=== PATIENT | male | born 1945 | race Caucasian/White ===

== ENCOUNTER → 2016-06-16 | Outpatient (CLI) | payer OTHER ==
[2015-09-19 09:00] VITALS: BP 130/70
[~2016-06-16] MED LIST: AMLO2.5T PO; ASPI325T4 PO; ATEN50TA PO; CLOP75TA PO; DIGO0.12 PO; LOSA1TAB12 PO; LOVA20TA2 PO; METF-620 PO; MULT1TAB52 PO; NITR0.4T6 SL; OMEG1CAP6 PO
--- NOTE | 2016-06-16 10:59 | RAD ---
Indication: Lung nodule, follow-up. Axial imaging through the chest was performed without contrast. Comparison is made with prior chest from 05/23/2015. No axillary lymphadenopathy is detected. No definite hilar or mediastinal lymphadenopathy is detected. There are coronary arterial calcifications present. No pericardial or pleural fluid is identified. Parenchymal evaluation again demonstrates a calcified granuloma in the left lower lobe posteriorly. The noncalcified nodule just inferior to this in the posterior left lower lobe appears stable measuring 6 to 7 mm. No new nodule is seen. Upper abdomen is unremarkable. Impression: Stable left lower lobe pulmonary nodule compared with exam from 05/23/2015. Continued follow-up per Fleischner Society is recommended. PQRS Compliance Statement: One or more of the following individualized dose reduction techniques were utilized for this examination: 1. Automated exposure control 2. Adjustment of the mA and/or kV according to patient size 3. Use of iterative reconstruction technique
== END | disposition home or self-care (01) ==
LOC: CT 10:23
PROVIDERS: ATTEND Internal Medicine Pulmonary Disease
DX: R91.1 Solitary pulmonary nodule (principal)
CPT/HCPCS: 71250

== ENCOUNTER 2017-03-01 11:03 | Emergency (ER) | payer OTHER ==
[2017-03-01] MEDS: IV NORMAL SALINE 500ML BAG 500 ML IV ×2 (12:15)
[2017-03-01] MEDS: ONDANSETRON PF 4 MG/2 ML VIAL. IV ×2 (12:15)
[2017-03-01] MEDS: HYDROmorphone 2 MG/ML VIAL IV ×2 (12:16)
[2017-03-01 12:31] LABS: BILIRUBIN,URINE NEGATIVE (NEG); CLARITY,URINE CLOUDY; COLOR,URINE YELLOW; GLUCOSE,URINE 100 mg/dL (NEG); NITRITE,URINE NEGATIVE (NEG); PROTEIN,URINE NEGATIVE (NEG-TRACE); UROBILINOGEN,URINE 0.2 mg/dL (0.2 mg/dL)
[2017-03-01 12:43] LABS: RBC,URINE TNTC /HPF (0-2); WBC,URINE 0 /HPF (0-4)
[2017-03-01 12:44] LABS: BACTERIA,URINE 0 /HPF (0-FEW); SQUAMOUS EPITHELIAL CELL,UR FEW /LPF
[2017-03-01 13:26] LABS: AGAP ISTAT 18 mmol/L (6-14); BUN ISTAT 22 mg/dL (8-26); CHLORIDE ISTAT 96 mmol/L (98-110); CREATININE ISTAT 1.4 mg/dL (0.5-1.4); GLUCOSE ISTAT 159 mg/dL (70-99); HEMATOCRIT ISTAT 36 % (37-52); HEMOGLOBIN ISTAT 12.2 g/dL (14-18); ION CA ISTAT 1.17 mmol/L (1.13-1.32); POTASSIUM ISTAT 4.2 mmol/L (3.5-5.0); SODIUM ISTAT 136 mmol/L (135-145); TOT CO2 ISTAT 27 mmol/L (23-32)
== END 2017-03-01 14:13 | disposition home or self-care (01) ==
LOC: ER 11:03
DX: N20.1 Calculus of ureter (principal); I25.10 Atherosclerotic heart disease of native coronary artery without angina pectoris; I11.9 Hypertensive heart disease without heart failure; E11.9 Type 2 diabetes mellitus without complications; E78.00 Pure hypercholesterolemia, unspecified; Z87.442 Personal history of urinary calculi; Z95.5 Presence of coronary angioplasty implant and graft; Z88.8 Allergy status to other drugs, medicaments and biological substances
CPT/HCPCS: 74176; 80047; 81001; 96361; 96374; 96375; 99285-25; J1170; J2405; J7040

== ENCOUNTER → 2017-04-07 | Outpatient (CLI) | payer OTHER | END | disposition home or self-care (01) | LOC: PMGWOUND 09:15 | DX: E11.622 Type 2 diabetes mellitus with other skin ulcer (principal); I87.311 Chronic venous hypertension (idiopathic) with ulcer of right lower extremity; I25.10 Atherosclerotic heart disease of native coronary artery without angina pectoris; E78.5 Hyperlipidemia, unspecified; E66.01 Morbid (severe) obesity due to excess calories; L97.211 Non-pressure chronic ulcer of right calf limited to breakdown of skin; I11.9 Hypertensive heart disease without heart failure; E78.00 Pure hypercholesterolemia, unspecified; Z95.1 Presence of aortocoronary bypass graft; Z68.35 Body mass index [BMI] 35.0-35.9, adult; Z95.5 Presence of coronary angioplasty implant and graft | CPT/HCPCS: 29581 ==

== ENCOUNTER → 2017-04-11 | Outpatient (CLI) | payer OTHER | END | disposition home or self-care (01) | LOC: PMGWOUND 12:43 | DX: E11.622 Type 2 diabetes mellitus with other skin ulcer (principal); L97.211 Non-pressure chronic ulcer of right calf limited to breakdown of skin; I87.311 Chronic venous hypertension (idiopathic) with ulcer of right lower extremity; I25.10 Atherosclerotic heart disease of native coronary artery without angina pectoris; E78.5 Hyperlipidemia, unspecified; E66.01 Morbid (severe) obesity due to excess calories; I11.9 Hypertensive heart disease without heart failure; E78.00 Pure hypercholesterolemia, unspecified; Z95.1 Presence of aortocoronary bypass graft; Z68.35 Body mass index [BMI] 35.0-35.9, adult; Z95.5 Presence of coronary angioplasty implant and graft | CPT/HCPCS: 29581; 97597 ==

== ENCOUNTER → 2017-04-18 | Outpatient (CLI) | payer OTHER | END | disposition home or self-care (01) | LOC: PMGWOUND 12:51 | DX: E11.622 Type 2 diabetes mellitus with other skin ulcer (principal); L97.211 Non-pressure chronic ulcer of right calf limited to breakdown of skin; I87.311 Chronic venous hypertension (idiopathic) with ulcer of right lower extremity; I25.10 Atherosclerotic heart disease of native coronary artery without angina pectoris; E66.01 Morbid (severe) obesity due to excess calories; I11.9 Hypertensive heart disease without heart failure; E78.00 Pure hypercholesterolemia, unspecified; Z95.1 Presence of aortocoronary bypass graft; Z68.35 Body mass index [BMI] 35.0-35.9, adult; Z95.5 Presence of coronary angioplasty implant and graft | CPT/HCPCS: 29581 ==

== ENCOUNTER → 2017-04-25 | Outpatient (CLI) | payer OTHER | END | disposition home or self-care (01) | LOC: PMGWOUND 10:57 | DX: E11.622 Type 2 diabetes mellitus with other skin ulcer (principal); L97.211 Non-pressure chronic ulcer of right calf limited to breakdown of skin; I87.311 Chronic venous hypertension (idiopathic) with ulcer of right lower extremity; I25.10 Atherosclerotic heart disease of native coronary artery without angina pectoris; E66.01 Morbid (severe) obesity due to excess calories; I11.9 Hypertensive heart disease without heart failure; E78.00 Pure hypercholesterolemia, unspecified; Z95.1 Presence of aortocoronary bypass graft; Z68.35 Body mass index [BMI] 35.0-35.9, adult; Z95.5 Presence of coronary angioplasty implant and graft | CPT/HCPCS: 99214 ==

== ENCOUNTER 2018-02-10 17:53 | Emergency (ER) | payer OTHER ==
[~2018-02-10] VITALS: Ht 170.2 cm; Wt 97.5 kg
[~2018-02-10 17:53] MED LIST changes: -AMLO2.5T PO; +AMLO2.5T3 PO; -ASPI325T4 PO; +ASPI325T8 PO; +ESOM20CA PO; +LOSA100T14 PO; -METF-620 PO; +METF10007 PO; +NITR0.4T22 SL; -NITR0.4T6 SL; +ONDA4TAB10 PO; +OXYC1TAB15 PO; +TAMS0.4C97 PO
[2018-02-10] MEDS ORDERED: MORPHINE SULFATE 4 MG/ML VIAL. IV ONE (19:30)
[2018-02-10] MEDS ORDERED: CONTRAST GIVEN. MC PRN (19:45)
[2018-02-10] MEDS ORDERED: IOHEXOL 300 MG/ML 100ML VIAL. IV ONE (19:45)
[2018-02-10 19:58] LABS: BASO % 1 % (0-3); EOS # 0.2 x10^3/uL (0.0-0.7); EOS % 3 % (0-3); HEMATOCRIT 37.9 % (39.0-53.0); HEMOGLOBIN 13.5 g/dL (13.0-17.5); LYMPH # 1.2 x10^3/uL (1.0-4.8); LYMPH % 19 % (24-48); MEAN CORPUSCULAR HEMOGLOBIN 32 pg (25-35); MEAN CORPUSCULAR HGB CONC 36 g/dL (31-37); MEAN CORPUSCULAR VOLUME 89 fL (79-100); MONO # 0.5 x10^3/uL (0.0-1.1); MONO % 7 % (0-9); NEUT # 4.8 x10^3uL (1.8-7.7); NEUT % 71 % (31-73); PLATELET COUNT 167 x10^3/uL (140-400); RED BLOOD COUNT 4.26 x10^6/uL (4.30-5.70); RED CELL DISTRIBUTION WIDTH 14.4 % (11.5-14.5); WHITE BLOOD COUNT 6.7 x10^3/uL (4.0-11.0)
[2018-02-10 20:02] LABS: CALCIUM 9.5 mg/dL (8.5-10.1); CREATININE 1.1 mg/dL (0.7-1.3); GFR 65.4; POTASSIUM 3.6 mmol/L (3.5-5.1)
[2018-02-10 20:05] LABS: PROTHROMBIN TIME PATIENT 13.5 SEC (11.7-14.0)
--- NOTE | 2018-02-10 21:19 | RAD ---
PQRS Compliance Statement: One or more of the following individualized dose reduction techniques were utilized for this examination: 1. Automated exposure control 2. Adjustment of the mA and/or kV according to patient size 3. Use of iterative reconstruction technique CT CHEST ABD PELVIS W/CONTRAST Clinical Indication: FALL ONTO CURB HITTING R SIDE ON BLOOD THINNERS Comparison: CT abdomen and pelvis without contrast July or 2017. Technique: Helical CT imaging of the chest, abdomen and pelvis is performed after 75 cc of Omnipaque 300 IV contrast. Oral contrast not given. Findings: No acute traumatic aortic injury. No mediastinal hematoma. Median sternotomy wires, coronary artery disease, changes of CABG, and calcific aortic valve stenosis. Cardiac size normal, no pericardial effusion. Central airways patent. There is no pneumothorax. No pulmonary contusion. Stable 6 mm nodule in the left lower lobe, image 48. Nodule is stable compared to 2015, therefore considered benign. Calcified granuloma left lower lobe. There is no acute traumatic solid organ injury in the upper abdomen. 1.5 cm left renal hypodensity, not definitely a cyst. Fatty replacement of the pancreas. Stomach unremarkable. No dilated bowel. The appendix is normal. No intraperitoneal free air or free fluid. Urinary bladder is intact. No acute compression fracture in the thoracolumbar spine. No acute displaced rib fractures. IMPRESSION: No acute traumatic injury in the chest abdomen or pelvis. Electronically signed by: Yvan Park MD (02/10/2018 9:15 PM) [facility]
[2018-02-10 21:30] VITALS: BP 143/68
[2018-02-10] MEDS ORDERED: MORPHINE SULFATE 10 MG/ML VIAL. IV ONE (21:30)
[2018-02-10] MEDS ORDERED: CYCL10TA2 PO (21:46)
--- NOTE | 2018-02-10 21:46 | PHYS DOC ---
Past Medical History Past Medical History: CAD, Diabetes-Type II, High Cholesterol, Heart Disease, Hypertension, Kidney Stone Past Surgical History: Coronary Bypass Surgery, Other Additional Past Surgical Histo: cardiac cath with stent Alcohol Use: Rarely Drug Use: None Adult General Chief Complaint Chief Complaint: RIB PAIN HPI HPI Patient is a 73 year old male with history of CAD, hypertension, high cholesterol, who presents today complaining of 8 out of 10 sharp right lateral rib pain that began today after he fell at curb at a home. Patient denies any loss of consciousness. Patient states is on several medications including Plavix and aspirin 325 mg. Patient states his pain is worse on deep breaths as well as palpation to the area. Patient denies hitting his head on the ground. Denies any neck pain. Denies any low back or mid back pain. Review of Systems Review of Systems Constitutional: Denies fever or chills [] Eyes: Denies change in visual acuity, redness, or eye pain [] HENT: Denies nasal congestion or sore throat [] Respiratory: Reports right rib pain. Denies cough or shortness of breath [] Cardiovascular: No additional information not addressed in HPI [] GI: Denies abdominal pain, nausea, vomiting, bloody stools or diarrhea [] : Denies dysuria or hematuria [] Musculoskeletal: Denies back pain or joint pain [] Integument: Denies rash or skin lesions [] Neurologic: Denies headache, focal weakness or sensory changes [] All other systems were reviewed and found to be within normal limits, except as documented in this note. Current Medications Current Medications Current Medications Medications (Trade) Dose Ordered Sig/Louis Start Time Stop Time Status Last Admin Dose Admin Info (CONTRAST GIVEN -- Rx MONITORING) 1 each PRN DAILY PRN 02/10/18 19:45 02/12/18 19:44 Iohexol (Omnipaque 300 Mg/ml) 100 ml 1X ONCE 02/10/18 19:45 02/10/18 19:46 DC 02/10/18 20:25 75 ML Morphine Sulfate (Morphine Sulfate) 5 mg 1X ONCE 02/10/18 21:30 02/10/18 21:31 DC 02/10/18 21:14 5 MG Allergies Allergies Allergies Coded Allergies Type Severity Reaction Last Updated Verified lisinopril Allergy Intermediate 02/10/18 Yes Physical Exam Physical Exam Constitutional: Well developed, well nourished, no acute distress, non-toxic appearance. [] HENT: Normocephalic, atraumatic, bilateral external ears normal, oropharynx moist, no oral exudates, nose normal. [] Eyes: PERRLA, EOMI, conjunctiva normal, no discharge. [] Neck: Normal range of motion, no tenderness, supple, no stridor. [] Cardiovascular:Heart rate regular rhythm, no murmur [] Lungs & Thorax: Right ribs with no obvious bruising, no obvious deformity. Mild tenderness on palpation of the right lateral ribs mid axillary line approximately ribs 7 through 11. Bilateral breath sounds clear to auscultation [] Abdomen: Bowel sounds normal, soft, no tenderness, no masses, no pulsatile masses. [] Skin: Palm of the left hand with superficial bruising/laceration approximately 2 x 2 centimeters. Warm, dry, no erythema, no rash. [] Back: No tenderness, no CVA tenderness. [] Extremities: No tenderness, no cyanosis, no clubbing, ROM intact, no edema. [] Neurologic: Alert and oriented X 3, normal motor function, normal sensory function, no focal deficits noted. [] Psychologic: Affect normal, judgement normal, mood normal. [] Current Patient Data Vital Signs Vital Signs Date Time Temp Pulse Resp B/P (MAP) Pulse Ox O2 Delivery O2 Flow Rate FiO2 02/10/18 21:30 64 18 143/68 (93) 98 Room Air 02/10/18 19:16 98.3 98.3 Lab Values Laboratory Tests Test 02/10/18 19:43 White Blood Count 6.7 x10^3/uL (4.0-11.0) Red Blood Count 4.26 x10^6/uL (4.30-5.70) L Hemoglobin 13.5 g/dL (13.0-17.5) Hematocrit 37.9 % (39.0-53.0) L Mean Corpuscular Volume 89 fL (79-100) Mean Corpuscular Hemoglobin 32 pg (25-35) Mean Corpuscular Hemoglobin Concent 36 g/dL (31-37) Red Cell Distribution Width 14.4 % (11.5-14.5) Platelet Count 167 x10^3/uL (140-400) Neutrophils (%) (Auto) 71 % (31-73) Lymphocytes (%) (Auto) 19 % (24-48) L Monocytes (%) (Auto) 7 % (0-9) Eosinophils (%) (Auto) 3 % (0-3) Basophils (%) (Auto) 1 % (0-3) Neutrophils # (Auto) 4.8 x10^3uL (1.8-7.7) Lymphocytes # (Auto) 1.2 x10^3/uL (1.0-4.8) Monocytes # (Auto) 0.5 x10^3/uL (0.0-1.1) Eosinophils # (Auto) 0.2 x10^3/uL (0.0-0.7) Basophils # (Auto) 0.0 x10^3/uL (0.0-0.2) Prothrombin Time 13.5 SEC (11.7-14.0) Prothrombin Time INR 1.1 (0.8-1.1) PTT 27 SEC (24-38) Sodium Level 137 mmol/L (136-145) Potassium Level 3.6 mmol/L (3.5-5.1) Chloride Level 99 mmol/L (98-107) Carbon Dioxide Level 28 mmol/L (21-32) Anion Gap 10 (6-14) Blood Urea Nitrogen 16 mg/dL (8-26) Creatinine 1.1 mg/dL (0.7-1.3) Estimated GFR (Cockcroft-Gault) 65.4 Glucose Level 139 mg/dL (70-99) H Calcium Level 9.5 mg/dL (8.5-10.1) Laboratory Tests 02/10/18 19:43 Laboratory Tests 02/10/18 19:43 EKG EKG [] Radiology/Procedures Radiology/Procedures [] Course & Med Decision Making Course & Med Decision Making Pertinent Labs and Imaging studies reviewed. (See chart for details) This is a 73-year-old male patient presented to the ED today with right lateral rib pain status post falling. Patient is on several blood thinners including Plavix and aspirin [address] chest abdomen and pelvis was obtained which is negative for any acute findings. Discharged with cyclobenzaprine. Ice recommended to the area. Follow-up with PCP next week. Dragon Disclaimer Dragon Disclaimer This electronic medical record was generated, in whole or in part, using a voice recognition dictation system. Departure Departure Impression: Primary Impression: Contusion of rib on right side Additional Impression: Fall from standing Disposition: 01 HOME, SELF-CARE Condition: STABLE Referrals: WALLY WASHINGTON MD (PCP) Follow up in the course of next week Patient Instructions: Contusion, Fkrp-[id number], Fall Prevention and Home Safety Additional Instructions: You were evaluated in the emergency room for right rib contusion after falling. Your CT of the chest and abdomen were negative for any acute findings. Try to ice and elevate the affected area. Take the prescribed medicine as needed for pain. Follow-up with your doctor next week. Come back to the emergency room at any point symptoms worsen. Scripts Cyclobenzaprine Hcl (CYCLOBENZAPRINE HCL) 10 Mg Tablet 1 TAB PO TID, #30 TAB Prov: ROSA ZAMARRIPA APRN 02/10/18 Problem Qualifiers Primary Impression: Contusion of rib on right side Encounter type: initial encounter Qualified Codes: S20.211A - Contusion of right front wall of thorax, initial encounter Additional Impression: Fall from standing Encounter type: initial encounter Qualified Codes: W19.XXXA - Unspecified fall, initial encounter ROSA ZAMARRIPA APRN Feb 10, 2018 21:46
== END 2018-02-10 21:59 | disposition home or self-care (01) ==
LOC: ER 17:53
DX: S20.211A Contusion of right front wall of thorax, initial encounter (principal); I11.9 Hypertensive heart disease without heart failure; E78.00 Pure hypercholesterolemia, unspecified; E11.9 Type 2 diabetes mellitus without complications; I25.10 Atherosclerotic heart disease of native coronary artery without angina pectoris; Z95.1 Presence of aortocoronary bypass graft; Z95.5 Presence of coronary angioplasty implant and graft; Z88.8 Allergy status to other drugs, medicaments and biological substances
CPT/HCPCS: 36415; 71260; 74177; 80048; 85025; 85610; 85730; 96374; 96376; 99284; J2270; Q9967

== ENCOUNTER → 2018-03-07 | Outpatient (CLI) | payer OTHER ==
[2018-02-10 21:30] VITALS: BP 143/68
[~2018-03-07] MED LIST changes: -AMLO2.5T3 PO; +AMLO2.5T5 PO; +CYCL10TA2 PO
--- NOTE | 2018-03-07 15:54 | CARD ---
MR#: [id number] Date of Study: 03/07/2018 Ordering Physician: WILLIAM ROSARIO, Referring Physician: WILLIAM ROSARIO, Tech: Fátima Brownlee APPROVED REPORT EXAM: Two-dimensional and M-mode echocardiogram with Doppler and color Doppler. Other Information Quality : AverageHR: 52bpm INDICATION CAD RISK FACTORS Hypertension Hyperlipidemia Diabetes 2D DIMENSIONS Left Atrium(2D)3.7 (1.6-4.0cm)IVSd1.4 (0.7-1.1cm) Aortic Root(2D)2.7 (2.0-3.7cm)LVDd4.4 (3.9-5.9cm) LVOT Diameter2.0 (1.8-2.4cm)PWd1.2 (0.7-1.1cm) LVDs1.8 (2.5-4.0cm)FS (%) 59.7 % SV76.9 mlLVEF(%)89.4 (>50%) Aortic Valve AoV Peak Jorge A.357.5cm/sAoV VTI87.4cm AO Peak GR.51.1mmHgLVOT Peak Jorge A.104.8cm/s LVOT VTI 28.25cmAO Mean GR.27mmHg IGGY (VTI)1.07cm2 Mitral Valve MV E Zerqbuwn171.8cm/sMV DECEL SOHY481aa MV A Rdwqrnvt50.6cm/sMV MWB34lw E/A Ratio1.4MVA (PHT)3.43cm2 TDI E/Lateral E'13.9E/Medial E'13.3 Pulmonary Valve PV Peak Qkdwrfzp348.6cm/sPV Peak Grad.5mmHg Tricuspid Valve TR P. Klkhosva405ft/sRAP TOAOOKNY8biGm TR Peak Gr.42ehOhHJZI34voNu Pulmonary Vein S1 Izcoydsi43.5cm/sD2 Itgkwibn67.1cm/s PVa cezpacdd512uepx LEFT VENTRICLE The left ventricle is normal size. There is mild to moderate concentric left ventricular hypertrophy. The left ventricular systolic function is normal. The Ejection Fraction is 50-55%. There is normal L V segmental wall motion. The left ventricular diastolic function and filling is normal for age. RIGHT VENTRICLE The right ventricle is normal size. There is normal right ventricular wall thickness. The right ventr icular systolic function is normal. ATRIA The left atrium size is normal. The right atrium size is normal. The interatrial septum is intact wit h no evidence for an atrial septal defect or patent foramen ovale as noted on 2-D or Doppler imaging. AORTIC VALVE The aortic valve is mildly to moderately thickened. Doppler and Color Flow revealed trace to mild aor tic regurgitation. Calculated aortic valve area is 1.07 cm2 with maximum pressure gradient of 51 mmHg and mean pressure gradient of 27 mmHg. Doppler and color-flow analysis revealed moderate aortic sten osis with mean gradient of 27 mmHg. MITRAL VALVE The mitral valve is normal in structure and function. There is no evidence of mitral valve prolapse. There is no mitral valve stenosis. Doppler and Color-flow revealed trace mitral regurgitation. TRICUSPID VALVE The tricuspid valve is not well visualized. Doppler and Color Flow revealed trace tricuspid regurgita tion. There is no tricuspid valve stenosis. PULMONIC VALVE The pulmonic valve is not well visualized. Doppler and Color Flow revealed no pulmonic valvular regur gitation. GREAT VESSELS The aortic root is normal in size. The IVC is normal in size and collapses >50% with inspiration. PERICARDIAL EFFUSION There is no evidence of significant pericardial effusion. Critical Notification Critical Value: No <Conclusion> The left ventricular systolic function is normal. The Ejection Fraction is 50-55%. Moderate aortic stenosis with mean gradient of 27 mmHg. Trace mitral regurgitation. Trace tricuspid regurgitation. There is no evidence of significant pericardial effusion. Signed by : Phillip Tong, Electronically Approved : 03/07/2018 15:52:43
== END | disposition home or self-care (01) ==
LOC: ECHO 13:57
PROVIDERS: ATTEND Internal Medicine Cardiovascular Disease
DX: I35.2 Nonrheumatic aortic (valve) stenosis with insufficiency (principal); I25.10 Atherosclerotic heart disease of native coronary artery without angina pectoris; E78.5 Hyperlipidemia, unspecified; I11.9 Hypertensive heart disease without heart failure; E11.9 Type 2 diabetes mellitus without complications
CPT/HCPCS: 93306

== ENCOUNTER 2018-11-16 08:03 | Observation (INO) | payer OTHER ==
[~2018-11-16] VITALS: Ht 170.2 cm; Wt 100.7 kg
[2018-11-16] VITALS (14 sets, daily range): BP systolic 99–145; BP diastolic 55–75
[2018-11-16] MEDS ORDERED: METO25TA4 PO (08:22)
[2018-11-16] MEDS ORDERED: CLOP75TA PO (08:22)
[2018-11-16] MEDS ORDERED: ISOS60TA2 PO (08:22)
[2018-11-16] MEDS ORDERED: RANO500T2 PO (08:22)
[2018-11-16 08:26] LABS: HEMATOCRIT 37.9 % (39.0-53.0); HEMOGLOBIN 13.4 g/dL (13.0-17.5); RED BLOOD COUNT 4.14 x10^6/uL (4.30-5.70); RED CELL DISTRIBUTION WIDTH 13.2 % (11.5-14.5)
[2018-11-16 08:36] LABS: PROTHROMBIN TIME PATIENT 13.2 SEC (11.7-14.0)
[2018-11-16 08:45] LABS: CALCIUM 9.4 mg/dL (8.5-10.1)
[2018-11-16] MEDS ORDERED: IOHEXOL 300 MG/ML 100ML VIAL. ONE ×2 (09:54→09:56)
[2018-11-16] MEDS ORDERED: LIDOCAINE 1% Multi-Dose 20 ML VIAL. ONE (09:54)
[2018-11-16] MEDS ORDERED: fentaNYL PF VIAL 100 MCG/2 ML VIAL ONE (10:13)
[2018-11-16] MEDS ORDERED: MIDAZOLAM HCL/PF 2 MG/2 ML VIAL. ONE (10:13)
[2018-11-16] MEDS ORDERED: HEPARIN for IV BOLUS 10,000 UNIT/10 ML VIAL. ONE (10:48)
[2018-11-16] MEDS ORDERED: IODIXANOL 320 MG/ML 100 ML VIAL. ONE (10:54)
[2018-11-16] MEDS ORDERED: LIDOCAINE 1% Multi-Dose 20 ML VIAL. INJ ONE (11:15)
[2018-11-16] MEDS ORDERED: IOHEXOL 300 MG/ML 100ML VIAL. IART ONE (11:15)
[2018-11-16] MEDS ORDERED: NITROGLYCERIN 200 MCG/2 ML SYRINGE FOR CATH/VASC LAB. ICAR ONE (11:15)
[2018-11-16] MEDS ORDERED: MIDAZOLAM HCL/PF 2 MG/2 ML VIAL. IV ONE (11:15)
[2018-11-16] MEDS ORDERED: HEPARIN for IV BOLUS 10,000 UNIT/10 ML VIAL. IV ONE (11:15)
[2018-11-16] MEDS ORDERED: fentaNYL PF VIAL 100 MCG/2 ML VIAL IV ONE (11:15)
[2018-11-16] MEDS ORDERED: CONTRAST GIVEN. MC PRN (11:30)
--- NOTE | 2018-11-16 12:00 | NUR ---
Patient arrived from geochemical laboratory technician at 1140, patient alert and oriented, right groin is soft, dressing is clean, dry and intact. Vital signs stable, family at bedside, patient instructed to lay flat. Will continue to monitor.
[2018-11-16] MEDS ORDERED: fentaNYL PF VIAL 100 MCG/2 ML VIAL IV PRN (12:15)
[2018-11-16] MEDS ORDERED: ATROPINE 0.5 MG/5 ML DISP.SYRINGE. IV PRN (12:15)
[2018-11-16] MEDS ORDERED: 0.9 % SODIUM CHLORIDE 10 ML DISP.SYRIN. IV PRN (12:15)
[2018-11-16] MEDS ORDERED: NITROGLYCERIN SUBLINGUAL 0.4 MG BOTTLE OF 25. SL PRN (12:15)
[2018-11-16] MEDS ORDERED: LIDOCAINE 2% 100 MG/5 ML SYRINGE. IV PRN (12:15)
[2018-11-16] MEDS ORDERED: AMIODARONE 150 MG in IV DEXTROSE 5% 100ML 100 ML IV PRN (12:15)
[2018-11-16] MEDS ORDERED: ASPI81TA59 PO (12:28)
[2018-11-16] MEDS ORDERED: LOSA1TAB22 PO (12:28)
[2018-11-16] MEDS ORDERED: DEXTROSE 50% 25 GM / 50ML DISP.SYRIN. IV PRN (14:15)
[2018-11-16] MEDS: ACETAMINOPHEN 325 MG TABLET. PO PRN (15:00)
[2018-11-16] MEDS: INSULIN LISPRO 300 UNITS/3 ML VIAL. SQ SCH (17:00)
[2018-11-16] MEDS: RANOLAZINE 500 MG TAB.ER.12H PO SCH (20:14)
[2018-11-16] MEDS: METOPROLOL TART IMMED RELEASE 25 MG TABLET. PO SCH (20:15)
[2018-11-16] MEDS ORDERED: ATORVASTATIN CALCIUM 10 MG TABLET. PO SCH (21:00)
[2018-11-17 03:22] VITALS: BP 159/76
[2018-11-17 05:49] LABS: CHOLESTEROL/HDL RATIO 3.6
[2018-11-17 07:00] VITALS: BP 151/76
[2018-11-17] MEDS ORDERED: PANTOPRAZOLE 40 MG TABLET.DR. PO SCH (07:30)
[2018-11-17] MEDS ORDERED: CLOPIDOGREL BISULFATE 75 MG TABLET PO SCH (08:00)
[2018-11-17] MEDS ORDERED: ASPIRIN ENTERIC COATED 81 MG TABLET.DR. PO SCH (08:00)
[2018-11-17] MEDS: INSULIN LISPRO 300 UNITS/3 ML VIAL. SQ SCH ×2 (08:00→12:00)
[2018-11-17] MEDS: RANOLAZINE 500 MG TAB.ER.12H PO SCH (08:42)
[2018-11-17] MEDS: METOPROLOL TART IMMED RELEASE 25 MG TABLET. PO SCH (08:43)
[2018-11-17] MEDS ORDERED: MULTIVITAMIN with MINERAL TABLET. PO SCH (09:00)
[2018-11-17] MEDS ORDERED: amLODIPine BESYLATE 5 MG TABLET PO SCH (09:00)
[2018-11-17] MEDS ORDERED: hydroCHLOROthiazide 25 MG TABLET PO SCH (09:00)
[2018-11-17] MEDS ORDERED: LOSARTAN POTASSIUM 50 MG TABLET. PO SCH (09:00)
[2018-11-17] MEDS ORDERED: ISOSORBIDE MONONITRATE ER 30 MG TAB.ER.24H PO SCH (09:00)
[2018-11-17 11:00] VITALS: BP 126/63
[2018-11-17] MEDS: ACETAMINOPHEN 325 MG TABLET. PO PRN (13:42)
--- NOTE | 2018-11-17 14:31 | PDOC ---
Provider Note Provider Note SHORT STAY DISCHARGE SUMMARY: Reason for admission: Overnight observation s/p PCI Discharge diagnosis: 1. CAD s/p 3V CABG 2. HTN 3. DLP 4. DM2 Hospital Course: Patient was admitted to the prosthetics lab technician for outpt cath. He was found to have in stent restenosis of the LCx stent, underwent angioplasty with a Trek 3.0 mm ball oon successful. Overnight with mild asymptomatic bradycardia. Right groin soft/c/d/i. No other acute issues. No new med changes. Discharge meds: See MRAD He will f/u with us in the office in 3 months. WILLIAM ROSARIO MD Nov 17, 2018 14:31
--- NOTE | 2018-11-17 15:24 | NUR ---
SS following for discharge planning. SS reviewed pt chart. Pt is from home with spouse and is currently on room air. Discharge order on the chart for home with self care.
--- NOTE | 2018-11-17 16:05 | NUR ---
Discharge instructions reviewed with patient and , follow ups given no new prescriptions or change in medications.
--- NOTE | 2018-11-20 11:24 | CARD ---
MR#: [id number] Date of Study: 11/16/2018 Ordering Physician: WILLIAM CUEVA, Referring Physician: WILLIAM CUEVA, Tech: MEKHI CHEATHAM RTR APPROVED REPORT Technologist: MEKHI CHEATHAM RTR Nurse: JUAN CAMILO RN Procedure(s) performed: Fluoro time: 18.6MIN Dose:[id number] Contrast:211 Moderate sedation:70 MIN LHC, Coronary angiography, Bypass angiography HISTORY The patient is a 73 year-old male with a history of : coronary artery disease, hypertension, dyslipid emia. INDICATION The indication(s) include : unstable angina . CS Clinical Frailty Scale [facility] Clinical Frailty Scale: Moderately Frail Heart Failure Heart Failure: Yes If Yes, Newly Diagnosed: No If Yes, HF Type: Diastolic If Yes, NYHA Class: Class II PROCEDURE NARRATIVE After explaining the risks and benefits of the procedure and alternatives, informed consent was obtai pooja. The patient was brought electively to the cardiac catheterization lab in a fasting state. A hira eout was performed confirming the patient's name, date of , procedure, and site of procedure. A ll necessary personnel were wearing the appropriate protective equipment and radiation monitor device s. (See nursing notes for medications administered). The right groin was sterilely prepped and drap ed in the usual fashion. The right groin was infiltrated with 10 mL of 2% lidocaine for subcutaneous anesthesia. A 6 F sheath was inserted into the right femoral artery without difficulty. Right and left coronary angiography was performed using a JR4 and JL4 catheter. Left ventricular end diastolic pressure was obtained with a pigtail catheter and pullback was performed after left ventriculography . Bypass angiography was performed with a AR1, JR4 and DAKOTA catheters. All catheter exchanges and adv ancements were performed over a guidewire. HEMODYNAMICS: AO: 140/80 LVEDP 23 mm Hg No gradient on LV to aortic pullback. LEFT VENTRICULOGRAM: Deferred CORONARY ANGIOGRAPHY: LM is a moderate caliber vessel with a distal 40% stenosis. LAD is a moderate caliber vessel with a mid 100% occlusion. The distal vessel is seen to fill via KNAPP A graft and has no significant disease. D1 is a moderate caliber vessel with a proximal 50% stenosis. LCx is a moderate caliber non-dominant vessel with a 90% ISR of the proximal stent. There is a mid 10 0% occlusion after two small caliber obtuse marginal vessels. LPL has an ostial occlusion, the mid and distal vessel are seen to fill via SVG and are free of dista l disease. RCA is a moderate caliber vessel with a mid 100% occlusion. There are previous stents in the proximal portion. RPDA is a moderate caliber vessel seen to fill via a patent SVG and is without significant disease. BYPASS ANGIOGRAPHY: KEVIN to LAD: Patent without anastomotic stenosis. SVG to RCA: Patent without anastomotic stenosis. SVG to LPL1: Patent without anastomotic stenosis. INTERVENTIONAL TECHNIQUE: PCI OF THE LCX ISR Heparin was used for anticoagulation. The patient was previously on asa and plavix. Through a 6Fr EBU 3.75 guide catheter, a 0.014'' prowater wire was advanced to the distal LCx. The proximal LCx ISR wa s then post-dilated with a Trek 3.0/8 mm balloon at 16 arya. There was excellent expansion of the sten t with SHANTELL 3 flow and 0% residual stenosis without any evidence of proximal or distal dissection. At case completion the right femoral sheath was removed and hemostasis was achieved with an Angioseal Device after limited femoral angiography confirmed adequate vessel size and anatomy. There were no acute complications. SHANTELL Flow SHANTELL Flow (Pre-Intervention): SHANTELL-3 SHANTELL Flow (Post-Intervention): SHANTELL-3 Conclusion 1. Acute on chronic diastolic HF with LVEDP of 23 mm Hg 2. Severe [place] three vessel coronary disease. 3. 3/3 grafts patent 4. Successful balloon angioplasty of the LCx ISR with a 3.0/8 mm Trek balloon at 16 arya. Recommendations 1. Continue asa, plavix. 2. Continue aggressive risk factor modification. 3. Cardiac rehab referral. Signed by : William Cueva, Electronically Approved : 11/16/2018 12:11:56
== END 2018-11-17 15:25 | disposition home or self-care (01) ==
LOC: CCL 08:03 → INTOOBSV 11:39 → 2 NORTH 11:39
PROVIDERS: ADMIT Internal Medicine Cardiovascular Disease; ATTEND Internal Medicine Cardiovascular Disease
DX: I25.110 Atherosclerotic heart disease of native coronary artery with unstable angina pectoris (principal); E78.5 Hyperlipidemia, unspecified; I10 Essential (primary) hypertension
CPT/HCPCS: 36415; 80048; 80061; 82962; 85027; 85347; 85610; 92920; 93459; 96374; C1725; C1760; C1769; C1887; C1892; G0269; G0378; G0379; J1644; J2250; J3010; J3490; Q9967; 99152; 99153; J1815; C1771

== ENCOUNTER → 2019-03-21 | Outpatient (CLI) | payer MEDICARE, OTHER ==
[~2019-03-21] MED LIST changes: +ASPI81TA59 PO; +ISOS60TA2 PO; +LOSA1TAB22 PO; +METO25TA4 PO; +RANO500T2 PO
--- NOTE | 2019-03-21 15:56 | RAD ---
Carotid doppler ultrasound History: Bruit, hypertension, coronary artery disease Multiple grayscale, color, and duplex spectral analysis waveform sonographic images were acquired of the carotid, subclavian, and vertebral arteries. Comparison: None Findings: RIGHT: PSV cm/sec EDV cm/sec Common carotid artery 71 13 Maximal internal carotid artery 113 18 External carotid artery 98 Vertebral artery 54 ICA/CCA ratio 1.59 LEFT: PSV cm/sec EDV cm/sec Common carotid artery 42 12 Maximum internal carotid artery 122 37 External carotid artery 96 Vertebral artery 38 ICA/CCA ratio 2.9 Velocities used to determine stenosis are known to correlate with NASCET angiographic criteria. There is antegrade flow in the bilateral vertebral arteries. There is eccentric hyperechoic plaque of the origin of the left internal carotid artery, also some eccentric plaque of the proximal right internal carotid artery. Impression: 1. There is no evidence of a hemodynamically significant stenosis. There is some plaque bilaterally. Electronically signed by: Je Munoz MD (03/21/2019 3:53 PM) [id number]
== END | disposition home or self-care (01) ==
LOC: US 13:35
PROVIDERS: ATTEND Internal Medicine Cardiovascular Disease
DX: I65.23 Occlusion and stenosis of bilateral carotid arteries (principal); I10 Essential (primary) hypertension; I25.10 Atherosclerotic heart disease of native coronary artery without angina pectoris
CPT/HCPCS: 93880

== ENCOUNTER → 2019-07-17 | Outpatient (CLI) | payer OTHER ==
[~2019-07-17] MED LIST changes: +MULT-445 PO; -MULT1TAB52 PO
--- NOTE | 2019-07-17 14:54 | KCIC ---
MRI Brain without contrast History:Double vision, worsening hand tremor Technique: Multiplanar, multisequential noncontrast MR imaging was performed of the brain. Comparison: August 28, 2013 Findings: There is no evidence of recent infarct or cytotoxic edema. Ventricular size is within normal limits. There is mild generalized supratentorial involutional change.There is no significant midline shift, intraaxial mass effect, or focal abnormal extra-axial fluid collection. There is very minimal T2 and FLAIR hyperintense signal of the right frontal white matter, also small focus left temporal lobe. There are some small foci of old microhemorrhage of the bilateral frontal lobes. There is suggestion of some increased T2 signal of the superior cervical cord and the cervical medullary junction although there is artifact in this region. There is preservation of the major intracranial flow-voids at the skull base. The cerebellar tonsils are normal in location. There is no significant abnormality of the pineal gland or small pituitary gland. There has been lens surgery bilaterally. There is mild to moderate anterior ethmoid air cell mucosal thickening bilaterally. There is very mild left maxillary sinus mucosal thickening. The mastoid air cells are aerated. There is preserved marrow signal of the clivus. Impression: 1. There is no evidence of recent infarct or intracranial mass effect. Very minimal T2 and FLAIR hyperintense signal of the supratentorial parenchyma is probably due to chronic microvascular ischemic disease in a patient this age. There are small foci of old microhemorrhage of the bilateral frontal lobes. There is likely some increased T2 signal of the cervical medullary junction and superior cervical cord although poorly evaluated on this exam. If true findings, sequela of demyelination would be a possibility although nonspecific. 2. There is mild generalized supratentorial involutional change. Electronically signed by: Je Munoz MD (07/17/2019 2:51 PM) [id number]
== END ==
LOC: KCIC MRI 12:29
PROVIDERS: ATTEND Psychiatry & Neurology Neurology with Special Qualifications in Child Neurology
DX: G93.89 Other specified disorders of brain (principal); I67.82 Cerebral ischemia; H53.2 Diplopia
CPT/HCPCS: 70551

== ENCOUNTER 2019-09-24 11:45 | Inpatient (IN) | payer OTHER ==
[~2019-09-24] VITALS: Ht 172.7 cm; Wt 107.3 kg
[~2019-09-24 11:45] MED LIST changes: -NEOMY/BACITR/POLYMYXIN OINT PACKET. TP ONE; -PRIM50TA24 PO; -REGADENOSON 0.4 MG/5 ML DISP.SYRIN. IV ONE
[2019-09-24] MEDS ORDERED: ASPIRIN CHEWABLE 81 MG TABLET. PO ONE (12:00)
--- NOTE | 2019-09-24 12:04 | PDOC1 ---
History and Physical Date of Admission Date of Admission DATE: 09/24/19 TIME: 12:04 Identification/Chief Complaint Chief Complaint Chest pain Source Source: Patient History of Present Illness History of Present Illness Mr Connolly is a 74 yo male w/ PMHx DM2, HTN, CAD s/p CABG who developed significant central chest pain during outpatient lexiscan MPI this morning. Was sent to the ED for further evaluation and treatment. Negative initial troponin. WBC 7.2, Hb 13.4, platelets 153, INR 1.1, NA 136, K3.9, BUN 15, CR 1, glucose 204 EKG - Normal sinus rhythm rate of [address]-T changes possibly some anterior septal ST depression CXR -no infiltrates, CABG apparent. Admitted for further care Past Medical History Cardiovascular: CAD, HTN, Hyperlipidemia GI: GERD Past Surgical History Past Surgical History: CABG Family History Family History: Heart Disease, Hypertension Social History Smoke: No ALCOHOL: rare Drugs: None Current Medications Current Medications Current Medications Aspirin (Aspirin Chewable) 324 mg 1X ONCE PO ; Start 09/24/19 at 12:00; Stop 09/24/19 at 12:01; Status DC Active Scripts Active Reported Children's Aspirin (Aspirin) 81 Mg Tab.chew 1 Tab PO DAILY 30 Days Losartan-Hctz 100-25 Mg Tab (Losartan/Hydrochlorothiazide) 1 Each Tablet 1 Tab PO DAILY Ranexa (Ranolazine) 500 Mg Tab.er.12h 1 Tab PO BID 30 Days Metoprolol Tartrate 25 Mg Tablet 1 Tab PO BID Isosorbide Mononitrate Er (Isosorbide Mononitrate) 60 Mg Tab.er.24h 1 Tab PO DAILY Clopidogrel (Clopidogrel Bisulfate) 75 Mg Tablet 1 Tab PO DAILY Nexium Capsule (Esomeprazole Magnesium) 20 Mg Capsule.dr 1 Cap PO DAILY Fish Oil 1,000 Mg Capsule ([place]-3 Fatty Acids/Fish Oil) 1 Each Capsule 1 Each PO DAILY Multivitamins (Multivitamin) 1 Each Tablet 1 Tab PO DAILY Amlodipine Besylate 2.5 Mg Tablet 2.5 Mg PO DAILY NITROGLYCERIN SubLingual (Nitroglycerin) 0.4 Mg Tab.subl 0.4 Mg SL PRN Q5MIN PRN Lovastatin 20 Mg Tablet 20 Mg PO HS Allergies Allergies: Coded Allergies: lisinopril (Verified Allergy, Intermediate, 02/10/18) ROS General: YES: Fatigue, Malaise; No: Chills, Night Sweats, Appetite, Other PSYCHOLOGICAL ROS: No: Anxiety, Behavioral Disorder, Concentration difficultie, Decreased libido, Depression, Disorientation, Hallucinations, Hostility, Irritablity, Memory difficulties, Mood Swings, Obsessive thoughts, Physical abuse, Sexual abuse, Sleep disturbances, Suicidal ideation, Other Eyes: No Blurry vision, No Decreased vision, No Double vision, No Dry eyes, No Excessive tearing, No Eye Pain, No Itchy Eyes, No Loss of vision, No Photophobia, No Scotomata, No Uses contacts, No Uses glasses, No Other HEENT: No: Heacaches, Visual Changes, Hearing change, Nasal congestion, Nasal discharge, Oral lesions, Sinus pain, Sore Throat, Epistaxis, Sneezing, Snoring, Tinnitus, Vertigo, Vocal changes, Other ALLERGY AND IMMUNOLOGY: No: Hives, Insect Bite Sensitivity, Itchy/Watery Eyes, Nasal Congestion, Post Nasal Drip, Seasonal Allergies, Other Hematological and Lymphatic: No: Bleeding Problems, Blood Clots, Blood Transfusions, Brusing, Night Sweats, Pallor, Swollen Lymph Nodes, Other ENDOCRINE: No: Breast Changes, Galactorrhea, Hair Pattern Changes, Hot Flashes, Malaise/lethargy, Mood Swings, Palpitations, Polydipsia/polyuria, Skin Changes, Temperature Intolerance, Unexpected Weight Changes, Other Breast: No New/Changing Breast Lumps, No Nipple changes, No Nipple discharge, No Other Respiratory: YES: Shortness of breath; No: Cough, Hemoptysis, Orthopnea, Pleuritic Pain, SOB with excertion, Sputum Changes, Stridor, Tachypnea, Wheezing, Other Cardiovascular: No Chest Pain, No Palpitations, No Orthopnea, No Paroxysmal Noc. Dyspnea, No Edema, No Lt Headedness, No Other Gastrointestinal: No Nausea, No Vomiting, No Abdominal Pain, No Diarrhea, No Constipation, No Melena, No Hematochezia, No Other Genitourinary: No Dysuria, No Frequency, No Incontinence, No Hematuria, No Retention, No Discharge, No Urgency, No Pain, No Flank Pain, No Other, No , No , No , No , No , No , No Musculoskeletal: No Gait Disturbance, No Joint Pain, No Joint Stiffness, No Joint Swelling, No Muscle Pain, No Muscular Weakness, No Pain In:, No Swelling In:, No Other Neurological: No Behavorial Changes, No Bowel/Bladder ControlChng, No Confusion, No Dizziness, No Gait Disturbance, No Headaches, No Impaired Coord/balance, No Memory Loss, No Numbness/Tingling, No Seizures, No Speech Problems, No Tremors, No Visual Changes, No Weakness, No Other Skin: No Dry Skin, No Eczema, No Hair Changes, No Lumps, No Mole Changes, No Mottling, No Nail Changes, No Pruritus, No Rash, No Skin Lesion Changes, No Other, No Acne Physical Exam General: Alert, Oriented X3, Cooperative, mild distress HEENT: Atraumatic, PERRLA, EOMI, Mucous membr. moist/pink Lungs: Clear to auscultation, Normal air movement Heart: S1S2, RRR, no thrills, no rubs, no gallops, no murmurs Abdomen: Normal bowel sounds, Soft, No tenderness, No hepatosplenomegaly, No masses Rectal Exam: not examined Extremities: No clubbing, No cyanosis, No edema, Normal pulses, No tenderness/swelling Skin: No rashes, No breakdown, No significant lesion Neuro: Normal gait, Normal speech, Strength at 5/5 X4 ext, Normal tone, Sensati on intact, Cranial nerves 3-12 NL, Reflexes 2+ Psych/Mental Status: Mental status NL, Mood NL Images Images CXR: There are changes of coronary artery bypass grafting. There are no confluent infiltrates. There is no pneumothorax or pleural effusion. The heart is not enlarged. IMPRESSION: 1. No confluent infiltrates. Historic studies: ECHOCARDIOGRAM 09/24/2019 <Conclusion> Technically difficult study. The left ventricular systolic function is normal. The Ejection Fraction is 55-60%. There is normal LV segmental wall motion. Transmitral Doppler flow pattern is Grade I-abnormal relaxation pattern. Doppler and color-flow analysis revealed severe aortic stenosis. There is no evidence of significant pericardial effusion. Left HEART CATH 11/2018 CORONARY ANGIOGRAPHY: LM is a moderate caliber vessel with a distal 40% stenosis. LAD is a moderate caliber vessel with a mid 100% occlusion. The distal vessel is seen to fill via KEVIN graft and has no significant disease. D1 is a moderate caliber vessel with a proximal 50% stenosis. LCx is a moderate caliber non-dominant vessel with a 90% ISR of the proximal stent. There is a mid 100% occlusion after two small caliber obtuse marginal vessels. LPL has an ostial occlusion, the mid and distal vessel are seen to fill via SVG and are free of distal disease. RCA is a moderate caliber vessel with a mid 100% occlusion. There are previous stents in the proximal portion. RPDA is a moderate caliber vessel seen to fill via a patent SVG and is without significant disease. BYPASS ANGIOGRAPHY: KEVIN to LAD: Patent without anastomotic stenosis. SVG to RCA: Patent without anastomotic stenosis. SVG to LPL1: Patent without anastomotic stenosis. Conclusion 1. Acute on chronic diastolic HF with LVEDP of 23 mm Hg 2. Severe [place] three vessel coronary disease. 3. 3/3 grafts patent 4. Successful balloon angioplasty of the LCx ISR with a 3.0/8 mm Trek balloon at 16 arya. VTE Prophylaxis Ordered VTE Prophylaxis Devices: No VTE Pharmacological Prophylaxi: Yes Assessment/Plan Assessment/Plan A/P: Chest pain - high risk CAD, started on heparin GTT per cardiology. Plan for LHC in AM. CAD - s/p CABG x2 Hypertension - cont home meds Hyperlipidemia - cont home meds Diabetes, II - sliding scale, check A1c - will repeat echo FEN - NPO after midnight PPX - heparin GTT FULL CODE Dispo - inpatient [facility] Justicifation of Admission Dx: Justifications for Admission: Justification of Admission Dx: Yes Angina: Unstable Variant Hypertension: Unstable Variant NELLIE CARMONA MD Sep 24, 2019 12:04
[2019-09-24] MEDS ORDERED: NITROGLYCERIN SUBLINGUAL 0.4 MG BOTTLE OF 25. SL PRN (12:15)
[2019-09-24] MEDS ORDERED: fentaNYL PF VIAL 100 MCG/2 ML VIAL IV PRN (12:15)
[2019-09-24] MEDS ORDERED: ONDANSETRON PF 4 MG/2 ML VIAL. IV PRN ×2 (12:15→15:45)
[2019-09-24] MEDS ORDERED: HEPARIN 25,000UTS/250ML PREMIX 250 ML IV PRN (12:15)
[2019-09-24] MEDS ORDERED: HEPARIN for IV BOLUS 10,000 UNIT/10 ML VIAL. IV ONE (12:15)
[2019-09-24 12:16] LABS: BASO % 1 % (0-3); EOS # 0.1 x10^3/uL (0.0-0.7); EOS % 1 % (0-3); HEMATOCRIT 38.4 % (39.0-53.0); HEMOGLOBIN 13.4 g/dL (13.0-17.5); LYMPH # 0.6 x10^3/uL (1.0-4.8); LYMPH % 9 % (24-48); MEAN CORPUSCULAR HEMOGLOBIN 31 pg (25-35); MEAN CORPUSCULAR HGB CONC 35 g/dL (31-37); MEAN CORPUSCULAR VOLUME 90 fL (79-100); MONO # 0.4 x10^3/uL (0.0-1.1); MONO % 6 % (0-9); NEUT % 84 % (31-73); PLATELET COUNT 153 x10^3/uL (140-400); RED BLOOD COUNT 4.26 x10^6/uL (4.30-5.70); RED CELL DISTRIBUTION WIDTH 14.4 % (11.5-14.5); WHITE BLOOD COUNT 7.2 x10^3/uL (4.0-11.0)
[2019-09-24 12:19] LABS: PROTHROMBIN TIME PATIENT 13.5 SEC (11.7-14.0)
[2019-09-24 12:26] LABS: CALCIUM 8.9 mg/dL (8.5-10.1); GFR 72.8; POTASSIUM 3.9 mmol/L (3.5-5.1)
[2019-09-24 12:31] LABS: ALBUMIN 3.3 g/dL (3.4-5.0); ALBUMIN/GLOBULIN RATIO 0.8 (1.0-1.7); TOTAL BILIRUBIN 0.4 mg/dL (0.2-1.0); TOTAL PROTEIN 7.4 g/dL (6.4-8.2)
--- NOTE | 2019-09-24 12:55 | RAD ---
EXAM: CHEST ONE VIEW. HISTORY: Chest pain. COMPARISON: 09/04/2016. FINDINGS: A frontal view of the chest is obtained. There are changes of coronary artery bypass grafting. There are no confluent infiltrates. There is no pneumothorax or pleural effusion. The heart is not enlarged. IMPRESSION: 1. No confluent infiltrates. Electronically signed by: Marlee Russ MD (09/24/2019 12:52 PM) [id number]
--- NOTE | 2019-09-24 13:20 | PHYS DOC ---
Past Medical History Past Medical History: CAD, Diabetes-Type II, High Cholesterol, Heart Disease, Hypertension, Kidney Stone Past Surgical History: Coronary Bypass Surgery, Other Additional Past Surgical Histo: cardiac cath with stent Smoking Status: Never Smoker Alcohol Use: Rarely Drug Use: None General Adult EDM: Chief Complaint: CHEST PAIN HPI: HPI: Patient is a 74-year-old active male with history of coronary disease and aortic stenosis who presents from an outpatient stress test that he developed chest pain during the exertion of the stress test. Patient also noted that he had some pain while out at the [place] over the last several days. He denies any nausea or diaphoresis. On arrival here to the emergency department he was chest pain-free. He states that typically he only gets pain when he exerts himself. He has had no episodes of passing out. Denies any fever chills or sweats. [] Review of Systems: Review of Systems: Constitutional: Denies fever or chills. [] Eyes: Denies change in visual acuity. [] HENT: Denies nasal congestion or sore throat. [] Respiratory: Denies cough or shortness of breath. [] Cardiovascular: Per HPI. [] GI: Denies abdominal pain, nausea, vomiting, bloody stools or diarrhea. [] : Denies dysuria. [] Musculoskeletal: Denies back pain or joint pain. [] Integument: Denies rash. [] Neurologic: Denies headache, focal weakness or sensory changes. [] Endocrine: Denies polyuria or polydipsia. [] Lymphatic: Denies swollen glands. [] Psychiatric: Denies depression or anxiety. [] Heart Score: HEART Score for Chest Pain: HEART Score for Chest Pain Response (Comments) Value History Highly Suspicious 2 ECG Nonspecific Repolarizatio 1 Age > 65 2 Risk Factors >3 Risk Factors or Hx CAD 2 Troponin < Normal Limit 0 Total 7 Risk Factors: Risk Factors: DM, Current or recent (<one month) smoker, HTN, HLP, family history of CAD, obesity. Risk Scores: Score 0 - 3: 2.5% MACE over next 6 weeks - Discharge Home Score 4 - 6: 20.3% MACE over next 6 weeks - Admit for Clinical Observation Score 7 - 10: 72.7% MACE over next 6 weeks - Early Invasive Strategies Current Medications: Current Medications Medications (Trade) Dose Ordered Sig/Louis Start Time Stop Time Status Last Admin Dose Admin Aspirin (Aspirin Chewable) 324 mg 1X ONCE 09/24/19 12:00 09/24/19 12:01 DC 09/24/19 12:47 324 MG Fentanyl Citrate (Fentanyl 2ml Vial) 50 mcg PRN Q1HR PRN 09/24/19 12:15 09/25/19 12:14 09/24/19 12:47 50 MCG Heparin Sodium (Porcine) (Heparin Sodium) 4,000 unit 1X ONCE 09/24/19 12:15 09/24/19 12:16 DC 09/24/19 12:52 4,000 UNIT Heparin Sodium/ Dextrose 250 ml @ 0 mls/hr CONT PRN 09/24/19 12:15 UNV 09/24/19 12:51 10 MLS/HR Nitroglycerin (Nitrostat) 0.4 mg PRN Q5MIN PRN 09/24/19 12:15 09/25/19 12:14 Ondansetron HCl (Zofran) 4 mg PRN Q8HRS PRN 09/24/19 12:15 09/25/19 12:14 Allergies: Allergies: Allergies Coded Allergies Type Severity Reaction Last Updated Verified lisinopril Allergy Intermediate 02/10/18 Yes Physical Exam: PE: Constitutional: Well developed, well nourished, no acute distress, non-toxic appearance. [] HENT: Normocephalic, atraumatic, bilateral external ears normal, oropharynx moist, no oral exudates, nose normal. [] Eyes: PERRLA, EOMI, conjunctiva normal, no discharge. [] Neck: Normal range of motion, no tenderness, supple, no stridor. [] Cardiovascular:Heart rate regular rhythm, no murmur [] Lungs & Thorax: Bilateral breath sounds clear to auscultation [] Abdomen: Bowel sounds normal, soft, no tenderness, no masses, no pulsatile masses. [] Skin: Warm, dry, no erythema, no rash. [] Back: No tenderness, no CVA tenderness. [] Extremities: No tenderness, no cyanosis, no clubbing, ROM intact, no edema. [] Neurologic: Alert and oriented X 3, normal motor function, normal sensory function, no focal deficits noted. [] Psychologic: Affect normal, judgement normal, mood normal. [] Current Patient Data: Labs: Laboratory Tests Test 09/24/19 11:59 White Blood Count 7.2 x10^3/uL (4.0-11.0) Red Blood Count 4.26 x10^6/uL (4.30-5.70) L Hemoglobin 13.4 g/dL (13.0-17.5) Hematocrit 38.4 % (39.0-53.0) L Mean Corpuscular Volume 90 fL (79-100) Mean Corpuscular Hemoglobin 31 pg (25-35) Mean Corpuscular Hemoglobin Concent 35 g/dL (31-37) Red Cell Distribution Width 14.4 % (11.5-14.5) Platelet Count 153 x10^3/uL (140-400) Neutrophils (%) (Auto) 84 % (31-73) H Lymphocytes (%) (Auto) 9 % (24-48) L Monocytes (%) (Auto) 6 % (0-9) Eosinophils (%) (Auto) 1 % (0-3) Basophils (%) (Auto) 1 % (0-3) Neutrophils # (Auto) 6.0 x10^3/uL (1.8-7.7) Lymphocytes # (Auto) 0.6 x10^3/uL (1.0-4.8) L Monocytes # (Auto) 0.4 x10^3/uL (0.0-1.1) Eosinophils # (Auto) 0.1 x10^3/uL (0.0-0.7) Basophils # (Auto) 0.0 x10^3/uL (0.0-0.2) Prothrombin Time 13.5 SEC (11.7-14.0) Prothrombin Time INR 1.1 (0.8-1.1) Sodium Level 136 mmol/L (136-145) Potassium Level 3.9 mmol/L (3.5-5.1) Chloride Level 99 mmol/L (98-107) Carbon Dioxide Level 29 mmol/L (21-32) Anion Gap 8 (6-14) Blood Urea Nitrogen 15 mg/dL (8-26) Creatinine 1.0 mg/dL (0.7-1.3) Estimated GFR (Cockcroft-Gault) 72.8 BUN/Creatinine Ratio 15 (6-20) Glucose Level 204 mg/dL (70-99) H Calcium Level 8.9 mg/dL (8.5-10.1) Total Bilirubin 0.4 mg/dL (0.2-1.0) Aspartate Amino Transferase (AST) 28 U/L (15-37) Alanine Aminotransferase (ALT) 26 U/L (16-63) Alkaline Phosphatase 53 U/L (46-116) Troponin I Quantitative < 0.017 ng/mL (0.000-0.055) Total Protein 7.4 g/dL (6.4-8.2) Albumin 3.3 g/dL (3.4-5.0) L Albumin/Globulin Ratio 0.8 (1.0-1.7) L Laboratory Tests 09/24/19 11:59 Laboratory Tests 09/24/19 11:59 Vital Signs: Vital Signs Date Time Temp Pulse Resp B/P (MAP) Pulse Ox O2 Delivery O2 Flow Rate FiO2 09/24/19 12:47 Room Air 09/24/19 11:45 98.6 93 16 168/79 (108) 100 98.6 EKG: EKG: EKG: Normal sinus rhythm rate of [address]-T changes possibly some anterior septal ST depression [] Radiology/Procedures: Radiology/Procedures: []REASON: chest pain PROCEDURE: CHEST AP ONLY EXAM: CHEST ONE VIEW. HISTORY: Chest pain. COMPARISON: 09/04/2016. FINDINGS: A frontal view of the chest is obtained. There are changes of coronary artery bypass grafting. There are no confluent infiltrates. There is no pneumothorax or pleural effusion. The heart is not enlarged. IMPRESSION: 1. No confluent infiltrates. Course & Med Decision Making: Course & Med Decision Making Pertinent Labs and Imaging studies reviewed. (See chart for details) ED course: Evaluation reveals a 74-year-old male with a failed stress test. I spoke with the patient's patient assessment coordinator who recommended aspirin and starting on a heparin drip which we did here in the emergency department. The patient has remained chest pain-free. He will go to heart cath tomorrow. He will be admitted to the [facility] under the care of the hospitalist. [] Dragon Disclaimer: Dragon Disclaimer: This electronic medical record was generated, in whole or in part, using a voice recognition dictation system. Departure Departure Impression: Primary Impression: Chest pain Qualified Codes: I25.9 - Chronic ischemic heart disease, unspecified Disposition: ADMITTED INPATIENT Admitting Physician: HUAN Condition: GUARDED Referrals: AUSTIN DORSEY MD (PCP) Justicifation of Admission Dx: Justifications for Admission: Justification of Admission Dx: Yes Comments: Acute coronary syndrome TEE JEAN DO Sep 24, 2019 13:20
--- NOTE | 2019-09-24 14:04 | PDOC2 ---
ROEL MIN DATA RECOVERY PLANNER 09/24/19 1404: CARDIAC CONSULT DATE OF CONSULT Date of Consult DATE: 09/24/19 TIME: 13:59 REASON FOR CONSULT Reason for Consult: ACS REFERRING PHYSICIAN Referring Physician: Dr. Shankar SOURCE Source: Chart review, Patient HISTORY OF PRESENT ILLNESS HISTORY OF PRESENT ILLNESS This is a 74 yo male who developed significant central chest pain during outpatient lexiscan MPI this morning. Describes as tightness in his central chest. Associated with shortness of breath and nausea. No dizziness or palpitations. Was sent to the ED for further evaluation and treatment. Patient reports intermittent chest tightness at home recently, which is what prompted outpatient ischemic evaluation. Presently chest pain free. Initial trop negative. Heparin gtt has been initiated. Echo noted with severe . PAST MEDICAL HISTORY Cardiovascular: CAD, HTN, Hyperlipidemia Endocrine: Diabetes PAST SURGICAL HISTORY Past Surgical History: CABG FAMILY HISTORY Family History: Heart Disease SOCIAL HISTORY Smoke: No ALCOHOL: none Drugs: None Lives: with Family CURRENT MEDICATIONS CURRENT MEDICATIONS Current Medications Medications (Trade) Dose Ordered Sig/Louis Route PRN Reason Start Time Stop Time Status Last Admin Dose Admin Aspirin (Aspirin Chewable) 324 mg 1X ONCE PO 09/24/19 12:00 09/24/19 12:01 DC 09/24/19 12:47 Heparin Sodium (Porcine) (Heparin Sodium) 4,000 unit 1X ONCE IV 09/24/19 12:15 09/24/19 12:16 DC 09/24/19 12:52 Heparin Sodium/ Dextrose 250 ml @ 0 mls/hr CONT PRN IV PER PROTOCOL 09/24/19 12:15 09/24/19 12:51 Fentanyl Citrate (Fentanyl 2ml Vial) 50 mcg PRN Q1HR PRN IV PAIN 09/24/19 12:15 09/25/19 12:14 09/24/19 12:47 ALLERGIES ALLERGIES: Coded Allergies: lisinopril (Verified Allergy, Intermediate, 02/10/18) ROS Review of System 14 point ROS conducted with pertinent positives noted above in HPI PHYSICAL EXAM General: Alert, Oriented X3, Cooperative, No acute distress HEENT: Atraumatic, Mucous membr. moist/pink Lungs: Clear to auscultation, Other (diminished bases) Heart: Regular rate, Other (3/6 systolic murmur ) Abdomen: Soft, Other (obese) Extremities: Other (trace bilateral LE edema ) Skin: No breakdown, No significant lesion Neuro: Normal speech, Sensation intact Psych/Mental Status: Mental status NL, Mood NL MUSCULOSKELETAL: No joint tenderness, Osteoarthritic changes both hands VITALS/I&O VITALS/I&O: Vital Signs Date Time Temp Pulse Resp B/P (MAP) Pulse Ox O2 Delivery O2 Flow Rate FiO2 09/24/19 13:25 94 24 131/74 (93) 97 Room Air 09/24/19 11:45 98.6 98.6 LABS Lab: Laboratory Tests Test 09/24/19 11:59 White Blood Count 7.2 x10^3/uL (4.0-11.0) Red Blood Count 4.26 x10^6/uL (4.30-5.70) L Hemoglobin 13.4 g/dL (13.0-17.5) Hematocrit 38.4 % (39.0-53.0) L Mean Corpuscular Volume 90 fL (79-100) Mean Corpuscular Hemoglobin 31 pg (25-35) Mean Corpuscular Hemoglobin Concent 35 g/dL (31-37) Red Cell Distribution Width 14.4 % (11.5-14.5) Platelet Count 153 x10^3/uL (140-400) Neutrophils (%) (Auto) 84 % (31-73) H Lymphocytes (%) (Auto) 9 % (24-48) L Monocytes (%) (Auto) 6 % (0-9) Eosinophils (%) (Auto) 1 % (0-3) Basophils (%) (Auto) 1 % (0-3) Neutrophils # (Auto) 6.0 x10^3/uL (1.8-7.7) Lymphocytes # (Auto) 0.6 x10^3/uL (1.0-4.8) L Monocytes # (Auto) 0.4 x10^3/uL (0.0-1.1) Eosinophils # (Auto) 0.1 x10^3/uL (0.0-0.7) Basophils # (Auto) 0.0 x10^3/uL (0.0-0.2) Prothrombin Time 13.5 SEC (11.7-14.0) Prothrombin Time INR 1.1 (0.8-1.1) Sodium Level 136 mmol/L (136-145) Potassium Level 3.9 mmol/L (3.5-5.1) Chloride Level 99 mmol/L (98-107) Carbon Dioxide Level 29 mmol/L (21-32) Anion Gap 8 (6-14) Blood Urea Nitrogen 15 mg/dL (8-26) Creatinine 1.0 mg/dL (0.7-1.3) Estimated GFR (Cockcroft-Gault) 72.8 BUN/Creatinine Ratio 15 (6-20) Glucose Level 204 mg/dL (70-99) H Calcium Level 8.9 mg/dL (8.5-10.1) Total Bilirubin 0.4 mg/dL (0.2-1.0) Aspartate Amino Transferase (AST) 28 U/L (15-37) Alanine Aminotransferase (ALT) 26 U/L (16-63) Alkaline Phosphatase 53 U/L (46-116) Troponin I Quantitative < 0.017 ng/mL (0.000-0.055) Total Protein 7.4 g/dL (6.4-8.2) Albumin 3.3 g/dL (3.4-5.0) L Albumin/Globulin Ratio 0.8 (1.0-1.7) L Laboratory Tests 09/24/19 11:59 Laboratory Tests 09/24/19 11:59 ECHOCARDIOGRAM ECHOCARDIOGRAM <Conclusion> Technically difficult study. The left ventricular systolic function is normal. The Ejection Fraction is 55-60%. There is normal LV segmental wall motion. Transmitral Doppler flow pattern is Grade I-abnormal relaxation pattern. Doppler and color-flow analysis revealed severe aortic stenosis. There is no evidence of significant pericardial effusion. DATE: 09/24/19 0915 HEART CATH HEART CATH CORONARY ANGIOGRAPHY: LM is a moderate caliber vessel with a distal 40% stenosis. LAD is a moderate caliber vessel with a mid 100% occlusion. The distal vessel is seen to fill via KEVIN graft and has no significant disease. D1 is a moderate caliber vessel with a proximal 50% stenosis. LCx is a moderate caliber non-dominant vessel with a 90% ISR of the proximal stent. There is a mid 100% occlusion after two small caliber obtuse marginal vessels. LPL has an ostial occlusion, the mid and distal vessel are seen to fill via SVG and are free of distal disease. RCA is a moderate caliber vessel with a mid 100% occlusion. There are previous stents in the proximal portion. RPDA is a moderate caliber vessel seen to fill via a patent SVG and is without significant disease. BYPASS ANGIOGRAPHY: KEVIN to LAD: Patent without anastomotic stenosis. SVG to RCA: Patent without anastomotic stenosis. SVG to LPL1: Patent without anastomotic stenosis. Conclusion 1. Acute on chronic diastolic HF with LVEDP of 23 mm Hg 2. Severe [place] three vessel coronary disease. 3. 3/3 grafts patent 4. Successful balloon angioplasty of the LCx ISR with a 3.0/8 mm Trek balloon at 16 arya. Recommendations 1. Continue asa, plavix. 2. Continue aggressive risk factor modification. 3. Cardiac rehab referral. DATE: 11/16/18 1136 ASSESSMENT/PLAN ASSESSMENT/PLAN 1. Chest pain, mixed features. Outpatient 2-day Lexiscan MPI today. Developed central chest tightness with stress portion. 2. CAD; s/p CABG. initial 1992 with redo in 2001 3. Hypertension; now controlled 4. Hyperlipidemia; statin 5. Diabetes, II 6. , severe per echo Recommendations Trend trop Lipids Resume secondary prevention measure Given recurrent chest pain with h/o CAD and severe noted on echo, will plan for LHC in am. R/b/a discussed with patient and and they are agreeable to proceed. NPO P WILLIAM BUSCH MD 09/24/19 0746: CARDIAC CONSULT ASSESSMENT/PLAN ASSESSMENT/PLAN Patient seen and examined. Agree with above nurse practitioner note. Plan for left heart catheterization and right heart catheterization tomorrow. I suspect his dyspnea is related mostly to his aortic stenosis. ROEL MIN APRN Sep 24, 2019 14:04 WILLIAM ROSARIO MD Sep 24, 2019 17:35
[2019-09-24 15:00] VITALS: BP 117/68
[2019-09-24] MEDS ORDERED: PRIM50TA24 PO (15:04)
[2019-09-24] MEDS ORDERED: DEXTROSE 50% 25 GM / 50ML DISP.SYRIN. IV PRN (16:00)
[2019-09-24] MEDS: INSULIN LISPRO 300 UNITS/3 ML VIAL. SQ SCH ×2 (16:30→21:00)
[2019-09-24 17:51] LABS: CHOLESTEROL/HDL RATIO 3.6
[2019-09-24 19:00] VITALS: BP 145/82
[2019-09-24] MEDS ORDERED: ATORVASTATIN CALCIUM 10 MG TABLET. PO SCH (21:00)
[2019-09-24] MEDS ORDERED: PRIMIDONE 50 MG TABLET PO SCH (21:00)
[2019-09-24] MEDS: RANOLAZINE 500 MG TAB.ER.12H PO SCH (21:44)
[2019-09-24] MEDS: METOPROLOL TART IMMED RELEASE 25 MG TABLET. PO SCH (21:45)
[2019-09-24 23:00] VITALS: BP 138/80
[2019-09-25] VITALS (14 sets, daily range): BP systolic 97–186; BP diastolic 50–94
[2019-09-25 01:09] LABS: HEMOGLOBIN A1C 6.4 % (4.8-5.6)
[2019-09-25 01:37] LABS: BASO % 0 % (0-3); EOS # 0.1 x10^3/uL (0.0-0.7); EOS % 1 % (0-3); HEMATOCRIT 35.2 % (39.0-53.0); HEMOGLOBIN 12.3 g/dL (13.0-17.5); LYMPH # 1.2 x10^3/uL (1.0-4.8); LYMPH % 19 % (24-48); MEAN CORPUSCULAR HEMOGLOBIN 31 pg (25-35); MEAN CORPUSCULAR HGB CONC 35 g/dL (31-37); MEAN CORPUSCULAR VOLUME 90 fL (79-100); MONO # 0.6 x10^3/uL (0.0-1.1); MONO % 9 % (0-9); NEUT # 4.7 x10^3/uL (1.8-7.7); NEUT % 71 % (31-73); PLATELET COUNT 163 x10^3/uL (140-400); RED BLOOD COUNT 3.92 x10^6/uL (4.30-5.70); RED CELL DISTRIBUTION WIDTH 14.2 % (11.5-14.5); WHITE BLOOD COUNT 6.6 x10^3/uL (4.0-11.0)
[2019-09-25 01:48] LABS: CALCIUM 8.5 mg/dL (8.5-10.1); GFR 72.8; POTASSIUM 3.5 mmol/L (3.5-5.1)
[2019-09-25] MEDS ORDERED: PANTOPRAZOLE 40 MG TABLET.DR. PO SCH (07:30)
[2019-09-25] MEDS: INSULIN LISPRO 300 UNITS/3 ML VIAL. SQ SCH ×2 (07:30→11:30)
--- NOTE | 2019-09-25 08:09 | EKG ---
[facility] [address] [place] [address] Test Date: 2019-09-24 Test Time: 11:50:26 Pat Name: FILI NEWTON Department: Room: Gender: M Harness Builder: : 1945 Requested By: TEE JEAN Order Number: [id number] Reading MD: Measurements Intervals [place] Rate: 92 P: 31 MA: 198 QRS: 66 QRSD: 92 T: 56 QT: 402 QTc: 503 Interpretive Statements SINUS RHYTHM PROLONGED QT NO SPECIFIC ECG ABNORMALITIES RI6.01 No previous ECG available for comparison
[2019-09-25] MEDS ORDERED: ANTI-COAG MONITOR BY PHARMACY. MC PRN (08:15)
[2019-09-25] MEDS: METOPROLOL TART IMMED RELEASE 25 MG TABLET. PO SCH (08:52)
[2019-09-25] MEDS: RANOLAZINE 500 MG TAB.ER.12H PO SCH (08:53)
[2019-09-25] MEDS ORDERED: ISOSORBIDE MONONITRATE ER 30 MG TAB.ER.24H PO SCH (09:00)
[2019-09-25] MEDS ORDERED: amLODIPine BESYLATE 5 MG TABLET PO SCH (09:00)
[2019-09-25] MEDS ORDERED: CLOPIDOGREL BISULFATE 75 MG TABLET PO SCH (09:00)
[2019-09-25] MEDS ORDERED: ASPIRIN CHEWABLE 81 MG TABLET. PO SCH (09:00)
[2019-09-25] MEDS ORDERED: LOSARTAN POTASSIUM 50 MG TABLET. PO SCH (09:00)
[2019-09-25] MEDS ORDERED: OMEGA-3 FATTY ACIDS/FISH OIL 1,000 MG CAPSULE. PO SCH (09:00)
[2019-09-25] MEDS ORDERED: hydroCHLOROthiazide 25 MG TABLET PO SCH (09:00)
--- NOTE | 2019-09-25 09:00 | NUR ---
LATE ENTRY: This RN tried to chart the infusion being HELD prior to cardiac cath in the IV infusion spreadsheet but was unable to do it because order was discontinued.
[2019-09-25] MEDS ORDERED: LIDOCAINE 1% Multi-Dose 20 ML VIAL. ONE (09:25)
[2019-09-25] MEDS ORDERED: MIDAZOLAM HCL/PF 2 MG/2 ML VIAL. ONE (09:29)
[2019-09-25] MEDS ORDERED: IODIXANOL 320 MG/ML 100 ML VIAL. IART ONE (09:30)
[2019-09-25] MEDS ORDERED: MIDAZOLAM HCL/PF 2 MG/2 ML VIAL. IV ONE (09:30)
[2019-09-25] MEDS ORDERED: LIDOCAINE 1% Multi-Dose 20 ML VIAL. INJ ONE (09:30)
[2019-09-25] MEDS ORDERED: CONTRAST GIVEN. MC PRN ×2 (09:30→10:30)
[2019-09-25] MEDS ORDERED: fentaNYL PF VIAL 100 MCG/2 ML VIAL IV ONE (09:30)
[2019-09-25] MEDS ORDERED: IOHEXOL 300 MG/ML 100ML VIAL. ONE (10:17)
--- NOTE | 2019-09-25 10:20 | NUR ---
SS following for discharge planning. SS reviewed pt chart and discussed with pt RN. Pt is from home with spouse and is currently on room air. Pt on Heparin drip. Pt having heart cath today. SS will continue to follow for discharge planning.
[2019-09-25] MEDS ORDERED: IOHEXOL 300 MG/ML 100ML VIAL. IART ONE (10:30)
--- NOTE | 2019-09-25 11:39 | CARD ---
MR#: [id number] Date of Study: 09/25/2019 Ordering Physician: WILLIAM CUEVA, Referring Physician: WILLIAM CUEVA, Tech: Ese Robledo APPROVED REPORT Technologist: Ese Robledo Nurse: Ondina Joyner RN Procedure(s) performed: fl time: 16.7 mins dose: 161 gycm2 contrast: 143 ml moderate sedation: 65 mins LHC, Coronary angigoraphy, bypass angiography, RHC HISTORY The patient is a 74 year-old male with a history of : coronary artery disease, tobacco history() , hy pertension, dyslipidemia. INDICATION The indication(s) include : valvular heart disease. CS Clinical Frailty Scale [facility] Clinical Frailty Scale: Mildly Frail Heart Failure Heart Failure: Yes If Yes, Newly Diagnosed: No If Yes, HF Type: Diastolic If Yes, NYHA Class: Class II PROCEDURE NARRATIVE Clinical information: Mr. Connolly is a 74-year-old man with past medical history of coronary artery disease, 2 prior bypasses who presents to the hospital in the setting of exertional dyspnea and chest discomfort after a myoca rdial perfusion study. His echocardiogram revealed severe aortic stenosis and he is planned today fo r a right and left heart catheterization with aortic valve study. Procedure details: After appropriate informed consent the right groin was prepped and draped in usual sterile fashion. Next, a 6 Kyrgyz introducer sheath was placed in the right common femoral artery via the modified Carie ian technique and a 5 Kyrgyz sheath was placed in the right common femoral vein under 2% lidocaine local anesthesia. Diagnostic angiography was performed with a JR4, JL4, DAKOTA, LCB and AR-1 catheters. Left ventricular end-diastolic pressure was obtained with a dual-lumen pigtail catheter and simultaneous aortic and ve ntricular pressures were obtained and a pullback was also performed. Findings: Aorta: 112/80 LVEDP 18 RA: 12 mmHg RV 26/8/12 PA 27/14/25 Wedge: 20 mmHg PA saturation 75% FA saturation 98% Arnold cardiac output 6.5 L/min Mean aortic valve gradient 52 mmHg on aortic valve study with dual-lumen pigtail catheter Coronary angiography: Left main is a moderate caliber vessel which is heavily calcified with mild irregularities up to 30% LAD has a mid 100% occlusion. The distal vessel seen to fill via a patent DAKOTA graft D1 is a moderate caliber tortuous vessel with up to 30% stenosis Left circumflex is a moderate caliber heavily calcified tortuous vessel with a proximal 70% in-stent restenosis and a distal subtotal occlusion OM1 is a small caliber diffusely diseased vessel with up to 60% stenosis OM 2 is a small caliber moderately diseased vessel with up to 50% stenosis LPL 1 has a ostial occlusion and the distal vessel seen to fill via a patent vein graft. RCA is known to be proximally occluded and not injected on the study Bypass angiography: KEVIN to the LAD is widely patent without anastomotic stenosis SVG to LPL 1 has a ostial 30% stenosis SVG to RCA has an ostial 30% stenosis Conclusion 1. Mildly elevated biventricular filling pressures 2. Mild pulmonary hypertension, mean PA 25 mmHg 3. Normal cardiac output 4. Severe aortic stenosis with a mean gradient of 52 mm Hg on dual lumen pigtail catheter study 5. Severe [place] three-vessel coronary artery disease 6. 3 of 3 grafts patent Recommendations 1. Although the patient has some residual coronary disease his symptoms are most consistent with sev ere aortic stenosis. Plan for referral to tertiary Medical Center for evaluation of possible transca theter aortic valve replacement. Signed by : William Cueva, Electronically Approved : 09/25/2019 11:38:59
--- NOTE | 2019-09-25 11:49 | PDOC ---
[employer] PROGRESS NOTE Date of Service DOS: DATE: 09/25/19 TIME: 11:41 Chief Complaint Chief Complaint Chest pain CAD - s/p CABG x2 Hypertension Hyperlipidemia Diabetes History of Present Illness History of Present Illness 09/25/2019 Patient seen and examined Hx of several stents Discussed with RN Chart reviewed. Vitals/I&O Vitals/I&O: Vital Signs Date Time Temp Pulse Resp B/P (MAP) Pulse Ox O2 Delivery O2 Flow Rate FiO2 09/25/19 11:03 65 16 100 Nasal Cannula 2.0 09/25/19 11:00 97.8 132/72 (92) 97.8 I & O 09/24/19 09/24/19 09/25/19 15:00 23:00 07:00 Intake Total 100 ml 0 ml Balance 100 ml 0 ml Physical Exam General: Alert, Oriented X3, Cooperative, No acute distress Heart: Regular rate, Other (3/6 systolic murmur ) Abdomen: Normal bowel sounds, Soft, No tenderness, No hepatosplenomegaly, No masses Extremities: No clubbing, No cyanosis, No edema, Normal pulses, No tenderness/swelling Skin: No rashes, No breakdown, No significant lesion Labs Labs: Laboratory Tests Test 09/24/19 11:59 09/24/19 15:09 09/24/19 17:01 09/24/19 18:30 White Blood Count 7.2 x10^3/uL (4.0-11.0) Red Blood Count 4.26 x10^6/uL (4.30-5.70) Hemoglobin 13.4 g/dL (13.0-17.5) Hematocrit 38.4 % (39.0-53.0) Mean Corpuscular Volume 90 fL (79-100) Mean Corpuscular Hemoglobin 31 pg (25-35) Mean Corpuscular Hemoglobin Concent 35 g/dL (31-37) Red Cell Distribution Width 14.4 % (11.5-14.5) Platelet Count 153 x10^3/uL (140-400) Neutrophils (%) (Auto) 84 % (31-73) Lymphocytes (%) (Auto) 9 % (24-48) Monocytes (%) (Auto) 6 % (0-9) Eosinophils (%) (Auto) 1 % (0-3) Basophils (%) (Auto) 1 % (0-3) Neutrophils # (Auto) 6.0 x10^3/uL (1.8-7.7) Lymphocytes # (Auto) 0.6 x10^3/uL (1.0-4.8) Monocytes # (Auto) 0.4 x10^3/uL (0.0-1.1) Eosinophils # (Auto) 0.1 x10^3/uL (0.0-0.7) Basophils # (Auto) 0.0 x10^3/uL (0.0-0.2) Prothrombin Time 13.5 SEC (11.7-14.0) Prothromb Time International Ratio 1.1 (0.8-1.1) Sodium Level 136 mmol/L (136-145) Potassium Level 3.9 mmol/L (3.5-5.1) Chloride Level 99 mmol/L (98-107) Carbon Dioxide Level 29 mmol/L (21-32) Anion Gap 8 (6-14) Blood Urea Nitrogen 15 mg/dL (8-26) Creatinine 1.0 mg/dL (0.7-1.3) Estimated GFR (Cockcroft-Gault) 72.8 BUN/Creatinine Ratio 15 (6-20) Glucose Level 204 mg/dL (70-99) Hemoglobin A1c 6.4 % (4.8-5.6) Calcium Level 8.9 mg/dL (8.5-10.1) Total Bilirubin 0.4 mg/dL (0.2-1.0) Aspartate Amino Transf (AST/SGOT) 28 U/L (15-37) Alanine Aminotransferase (ALT/SGPT) 26 U/L (16-63) Alkaline Phosphatase 53 U/L (46-116) Troponin I Quantitative < 0.017 ng/mL (0.000-0.055) < 0.017 ng/mL (0.000-0.055) < 0.017 ng/mL (0.000-0.055) Total Protein 7.4 g/dL (6.4-8.2) Albumin 3.3 g/dL (3.4-5.0) Albumin/Globulin Ratio 0.8 (1.0-1.7) Triglycerides Level 176 mg/dL (0-150) Cholesterol Level 143 mg/dL (0-200) LDL Cholesterol, Calculated 68 mg/dL (0-100) VLDL Cholesterol, Calculated 35 mg/dL (0-40) Non-HDL Cholesterol Calculated 103 mg/dL (0-129) HDL Cholesterol 40 mg/dL (40-60) Cholesterol/HDL Ratio 3.6 Glucose (Fingerstick) 201 mg/dL (70-99) Heparin Anti-Xa Act, Unfractionated 0.30 IU/mL (0.30-0.70) Test 09/24/19 20:35 09/25/19 00:48 09/25/19 07:20 Glucose (Fingerstick) 154 mg/dL (70-99) 113 mg/dL (70-99) White Blood Count 6.6 x10^3/uL (4.0-11.0) Red Blood Count 3.92 x10^6/uL (4.30-5.70) Hemoglobin 12.3 g/dL (13.0-17.5) Hematocrit 35.2 % (39.0-53.0) Mean Corpuscular Volume 90 fL (79-100) Mean Corpuscular Hemoglobin 31 pg (25-35) Mean Corpuscular Hemoglobin Concent 35 g/dL (31-37) Red Cell Distribution Width 14.2 % (11.5-14.5) Platelet Count 163 x10^3/uL (140-400) Neutrophils (%) (Auto) 71 % (31-73) Lymphocytes (%) (Auto) 19 % (24-48) Monocytes (%) (Auto) 9 % (0-9) Eosinophils (%) (Auto) 1 % (0-3) Basophils (%) (Auto) 0 % (0-3) Neutrophils # (Auto) 4.7 x10^3/uL (1.8-7.7) Lymphocytes # (Auto) 1.2 x10^3/uL (1.0-4.8) Monocytes # (Auto) 0.6 x10^3/uL (0.0-1.1) Eosinophils # (Auto) 0.1 x10^3/uL (0.0-0.7) Basophils # (Auto) 0.0 x10^3/uL (0.0-0.2) Heparin Anti-Xa Act, Unfractionated 0.30 IU/mL (0.30-0.70) Sodium Level 139 mmol/L (136-145) Potassium Level 3.5 mmol/L (3.5-5.1) Chloride Level 101 mmol/L (98-107) Carbon Dioxide Level 31 mmol/L (21-32) Anion Gap 7 (6-14) Blood Urea Nitrogen 15 mg/dL (8-26) Creatinine 1.0 mg/dL (0.7-1.3) Estimated GFR (Cockcroft-Gault) 72.8 Glucose Level 113 mg/dL (70-99) Calcium Level 8.5 mg/dL (8.5-10.1) Review of Systems Review of Systems: Denies pain Denies weakness Assessment and Plan Assessmemt and Plan Problems Medical Problems: (1) Chest pain Status: Acute Chest pain CAD - s/p CABG x2 Hypertension Hyperlipidemia Diabetes PLAN Cardiac monitoring Serial EKGs Serial Cardiac enzymes Awaiting cath results Full code Continue Heparin protocol DVT prophylaxis Home meds Comment Review of Relevant I have reviewed the following items mendel (where applicable) has been applied. Medications: Current Medications Medications (Trade) Dose Ordered Sig/Louis Route PRN Reason Start Time Stop Time Status Last Admin Dose Admin Aspirin (Aspirin Chewable) 324 mg 1X ONCE PO 09/24/19 12:00 09/24/19 12:01 DC 09/24/19 12:47 Heparin Sodium (Porcine) (Heparin Sodium) 4,000 unit 1X ONCE IV 09/24/19 12:15 09/24/19 12:16 DC 09/24/19 12:52 Heparin Sodium/ Dextrose 250 ml @ 0 mls/hr CONT PRN IV PER PROTOCOL 09/24/19 12:15 09/24/19 12:51 Fentanyl Citrate (Fentanyl 2ml Vial) 50 mcg PRN Q1HR PRN IV PAIN 09/24/19 12:15 09/24/19 12:47 Aspirin (Aspirin Chewable) 81 mg DAILY PO 09/25/19 09:00 09/25/19 08:52 Clopidogrel Bisulfate (Plavix) 75 mg DAILY PO 09/25/19 09:00 09/25/19 08:53 Metoprolol Tartrate (Lopressor) 25 mg BID PO 09/24/19 21:00 09/25/19 08:52 Primidone (Mysoline) 100 mg QHS PO 09/24/19 21:00 09/24/19 21:44 Ranolazine (Ranexa) 500 mg BID PO 09/24/19 21:00 09/25/19 08:53 Amlodipine Besylate (Norvasc) 2.5 mg DAILY PO 09/25/19 09:00 09/25/19 08:53 Isosorbide Mononitrate (Imdur) 60 mg DAILY PO 09/25/19 09:00 09/25/19 08:52 Losartan Potassium (Cozaar) 100 mg DAILY PO 09/25/19 09:00 09/25/19 08:53 Atorvastatin Calcium (Lipitor) 5 mg QHS PO 09/24/19 21:00 09/24/19 21:45 Hydrochlorothiazide (Hydrodiuril) 25 mg DAILY PO 09/25/19 09:00 09/25/19 08:53 Info (Anti-Coagulation Monitoring By Pharmacy) 1 each PRN DAILY PRN MC SEE COMMENTS 09/25/19 08:15 09/25/19 08:01 Heparin Sodium/ Sodium Chloride (HEPARIN for ARTERIAL LINE FLUSH) 1,000 unit 1X ONCE IART 09/25/19 09:30 09/25/19 09:31 DC 09/25/19 09:30 Heparin Sodium/ Sodium Chloride (HEPARIN for ARTERIAL LINE FLUSH) 1,000 unit 1X ONCE IART 09/25/19 09:30 09/25/19 09:31 DC 09/25/19 09:30 Midazolam HCl (Versed) 2 mg 1X ONCE IV 09/25/19 09:30 09/25/19 09:31 DC 09/25/19 09:55 Fentanyl Citrate (Fentanyl 2ml Vial) 100 mcg 1X ONCE IV 09/25/19 09:30 09/25/19 09:31 DC 09/25/19 09:55 Iodixanol (Visipaque 320) 100 ml 1X ONCE IART 09/25/19 09:30 09/25/19 09:32 DC 09/25/19 10:54 Lidocaine HCl (Lidocaine 1% 20ml Vial) 20 ml 1X ONCE INJ 09/25/19 09:30 09/25/19 09:32 DC 09/25/19 09:55 Iohexol (Omnipaque 300 Mg/ml) 100 ml 1X ONCE IART 09/25/19 10:30 09/25/19 10:31 DC 09/25/19 10:54 Justicifation of Admission Dx: Justifications for Admission: Justification of Admission Dx: Yes Angina: Unstable Variant Hypertension: Unstable Variant ISHAAN SIMPSON III DO Sep 25, 2019 11:49
--- NOTE | 2019-09-25 11:55 | NUR ---
Order for heparin drip discontinued per cardiology. This RN tried to end infusion on spreadsheet and was unable to do so because of the order being discontinued.
--- NOTE | 2019-09-25 13:00 | NUR ---
Pt notified this RN that pt unable to go to [facility] due to insurance. Pt stated that pt is able to go to and that it would work better for them because it is closer to their home. Roxanne Parsons notified.
--- NOTE | 2019-09-25 17:15 | NUR ---
Discharge Note: FILI NEWTON Discharge instructions and discharge home medications reviewed with Patient and a copy given. All questions have been answered and understanding verbalized. The following instructions and handouts were given: f/u with PCP within one week. F/U with Dr. Cueva within one month. POst Cardiac Catheterization Instructions given to patient. Pt verbalized understanding. Discontinued lines and drains: Peripheral IV intact. Patient discharged to Home or Self Care with Family Member via Wheelchair
== END 2019-09-25 17:15 | disposition home or self-care (01) | DRG 287 ==
LOC: ER 11:45 → ED HOLD 12:06 → 2 NORTH 14:07
PROVIDERS: ADMIT Internal Medicine; ATTEND Internal Medicine
PROC: 4A023N8 Measurement of Cardiac Sampling and Pressure, Bilateral, Percutaneous Approach (ICD-10-PCS; principal; 2019-09-25)
PROC: B2111ZZ Fluoroscopy of Multiple Coronary Arteries using Low Osmolar Contrast (ICD-10-PCS; 2019-09-25)
PROC: B2131ZZ Fluoroscopy of Multiple Coronary Artery Bypass Grafts using Low Osmolar Contrast (ICD-10-PCS; 2019-09-25)
PROC: B2181ZZ Fluoroscopy of Left Internal Mammary Bypass Graft using Low Osmolar Contrast (ICD-10-PCS; 2019-09-25)
DX: T82.855A Stenosis of coronary artery stent, initial encounter (principal); I25.110 Atherosclerotic heart disease of native coronary artery with unstable angina pectoris; I50.32 Chronic diastolic (congestive) heart failure; E11.9 Type 2 diabetes mellitus without complications; E78.00 Pure hypercholesterolemia, unspecified; E78.5 Hyperlipidemia, unspecified; K21.9 Gastro-esophageal reflux disease without esophagitis; I11.0 Hypertensive heart disease with heart failure; I25.82 Chronic total occlusion of coronary artery; I35.0 Nonrheumatic aortic (valve) stenosis; I27.20 Pulmonary hypertension, unspecified; Z82.49 Family history of ischemic heart disease and other diseases of the circulatory system; Z87.442 Personal history of urinary calculi; Z95.1 Presence of aortocoronary bypass graft; Z88.8 Allergy status to other drugs, medicaments and biological substances; Z79.899 Other long term (current) drug therapy
CPT/HCPCS: 93461; 93567; 96365; 96366; 96375; 99285; G0269; 36415; 71045; 80048; 80053; 80061; 82962; 83036; 84484; 85025; 85520; 85610; 93005; 99152; 99153; C1760; C1769; C1773; C1887; C1892; J1644; J1815; J2250; J3010; J3490; Q9967; C1771; G0378

== ENCOUNTER → 2019-09-24 | Outpatient (CLI) | payer OTHER ==
[~2019-09-24] MED LIST changes: +NEOMY/BACITR/POLYMYXIN OINT PACKET. TP ONE; +PRIM50TA24 PO; +REGADENOSON 0.4 MG/5 ML DISP.SYRIN. IV ONE
--- NOTE | 2019-09-24 09:35 | CARD ---
MR#: [id number] Date of Study: 09/24/2019 Ordering Physician: WILLIAM ROSARIO, Referring Physician: WILLIAM ROSARIO, Tech: Amanda Pillai [facility] APPROVED REPORT EXAM: Two-dimensional and M-mode echocardiogram with Doppler and color Doppler. Other Information Quality : Technically Limited Technically limited study due to body habitus. INDICATION Cardiac Disease: CAD 2D DIMENSIONS Left Atrium(2D)4.0 (1.6-4.0cm)IVSd1.2 (0.7-1.1cm) Aortic Root(2D)2.9 (2.0-3.7cm)LVDd3.1 (3.9-5.9cm) LVOT Diameter2.0 (1.8-2.4cm)PWd1.0 (0.7-1.1cm) LVDs2.4 (2.5-4.0cm)FS (%) 23.9 % SV19.1 mlLVEF(%)49.0 (>50%) Aortic Valve AoV Peak Jorge A.428.5cm/sAoV VTI92.9cm AO Peak GR.73.4mmHgLVOT Peak Jorge A.100.6cm/s AO Mean GR.46mmHgAVA (VMAX)0.72cm2 IGGY (VTI)0.70cm2 Mitral Valve MV E Mvycjtvn11.0cm/sMV DECEL [id number] MV A Fkwojkfx966.4cm/sE/A Ratio0.8 Tricuspid Valve TR P. Wjdjmwjt339xi/sRAP OBESQBTU7dfRi TR Peak Gr.68koJuKIZX22vwDq Pulmonary Vein S1 Cffdtaac22.4cm/sD2 Cfvmcxny20.4cm/s LEFT VENTRICLE The left ventricle is normal size. There is mild concentric left ventricular hypertrophy. The left ve ntricular systolic function is normal. The Ejection Fraction is 55-60%. There is normal LV segmental wall motion. Transmitral Doppler flow pattern is Grade I-abnormal relaxation pattern. RIGHT VENTRICLE The right ventricle is normal size. The right ventricular systolic function is normal. ATRIA The left atrium is mildly dilated. The right atrium size is normal. The interatrial septum is intact with no evidence for an atrial septal defect or patent foramen ovale as noted on 2-D or Doppler imagi ng. AORTIC VALVE The aortic valve is not well visualized. Doppler and Color Flow revealed possibly trace to mild aorti c regurgitation. Calculated aortic valve area is 0.7 cm2 with maximum pressure gradient of 74 mmHg an d mean pressure gradient of 47 mmHg. Doppler and color-flow analysis revealed severe aortic stenosis. MITRAL VALVE The mitral valve is normal in structure and function. There is no evidence of mitral valve prolapse. There is no mitral valve stenosis. Doppler and Color Flow revealed no mitral valve regurgitation note d. TRICUSPID VALVE The tricuspid valve is normal in structure and function. Doppler and Color Flow revealed no tricuspid valve regurgitation noted. There is no tricuspid valve stenosis. PULMONIC VALVE The pulmonic valve is not well visualized. Doppler and Color Flow revealed no pulmonic valvular regur gitation. There is no pulmonic valvular stenosis. GREAT VESSELS The aortic root is normal in size. The ascending aorta is not well seen. The IVC was not visualized. PERICARDIAL EFFUSION There is no evidence of significant pericardial effusion. Critical Notification Critical Value: No <Conclusion> Technically difficult study. The left ventricular systolic function is normal. The Ejection Fraction is 55-60%. There is normal LV segmental wall motion. Transmitral Doppler flow pattern is Grade I-abnormal relaxation pattern. Doppler and color-flow analysis revealed severe aortic stenosis. There is no evidence of significant pericardial effusion. Signed by : Phillip Tong, Electronically Approved : 09/24/2019 09:34:39
[2019-09-24 13:25] VITALS: BP 131/74
== END | disposition home or self-care (01) ==
LOC: ECHO 07:38
PROVIDERS: ATTEND Internal Medicine Cardiovascular Disease
DX: I35.1 Nonrheumatic aortic (valve) insufficiency (principal); I35.0 Nonrheumatic aortic (valve) stenosis; I25.10 Atherosclerotic heart disease of native coronary artery without angina pectoris; I51.7 Cardiomegaly
CPT/HCPCS: 78451; 93017; 93306; A9500; J2785

== ENCOUNTER → 2019-11-07 | Outpatient (CLI) | payer OTHER ==
[2019-09-25 15:35] VITALS: BP 122/65
[~2019-11-07] MED LIST changes: +PRIM50TA24 PO
--- NOTE | 2019-11-08 12:29 | SLEEP ---
DATE OF STUDY: 11/07/2019 SLEEP STUDY ATTENDING PHYSICIAN: Zion Martínez MD The patient is a 74-year-old who weighs 220 pounds with a BMI of 38. The patient's [place] score was 12. The patient had a history of sleep apnea, diagnosed 10 years ago, but did not use CPAP. During the night of the study, the patient spent 414 minutes in bed and slept for 309 minutes with a sleep efficiency of 75%. Sleep latency was 6 minutes with a REM latency of 136 minutes. Sleep architecture showed increased stage 1 sleep, normal stage 2 sleep, normal slow wave and reduced REM sleep. During the initial diagnostic portion of the study, the patient slept for 160 minutes. During that time, there were 44 hypopneas, but no obstructive or central apneas and 2 mixed apneas. The patient's AHI was 17 per hour with a REM AHI of 51 per hour. Supine AHI 17 per hour. EKG monitoring revealed normal sinus rhythm, average heart rate was 59 beats per minute, no sustained arrhythmias observed. No significant PLM seen. Nocturnal oximetry study revealed a mean oxygen saturation of 95% with the lowest of 86%. A 5% of time oxygen saturation remained between 80% and 89%. The patient met the criteria for CPAP initiation and was started on CPAP at 5 cm water and titrated up to 17 cm water. At the final pressure, the patient slept for 32 minutes. The patient had supine sleep, but no REM sleep. The patient's AHI was still 17 per hour. The patient had few hypopneas as well as central events. The patient's oxygen saturations remained around 93% and above. Patient did not tolerated CPAP well. IMPRESSION: 1. Moderate obstructive sleep apnea with worsening during REM sleep. Total AHI 17 per hour with a REM AHI of 51 per hour. 2. Mild nocturnal hypoxia secondary to obstructive sleep apnea, but resolved with CPAP. 3. No clinically significant periodic limb movements. RECOMMENDATIONS: 1. Optimum CPAP pressure was not achieved on this split night study. I would recommend the patient should be placed on auto CPAP with a minimum pressure of 8 cm water and a maximum pressure of 20 cm water. Patient should be desensitized to CPAP first. 2. Follow up in 4-6 weeks to assess compliance with CPAP and to document clinical improvement. I would also recommend review of the download data to make sure AHI remains less than 5 per hour. 3. Weight loss is strongly advised. 4. Avoid PILOT CONTROL OPERATOR HELPER depressants. 5. Cautioned regarding driving until symptoms of sleep apnea resolve with the use of CPAP. JOJO DUNBAR MD DR: STEPHENIE/matilde JOB#: [id number] / [id number] ZION Palomo MD MTDD
== END | disposition home or self-care (01) ==
LOC: RT 18:36
PROVIDERS: ATTEND Family Medicine
DX: G47.33 Obstructive sleep apnea (adult) (pediatric) (principal); G47.34 Idiopathic sleep related nonobstructive alveolar hypoventilation
CPT/HCPCS: 95810

== ENCOUNTER → 2020-06-19 | Outpatient (CLI) | payer OTHER ==
[2019-09-25 15:35] VITALS: BP 122/65
[~2020-06-19] MED LIST changes: -ISOS60TA2 PO; +ISOS60TA55 PO; +PERFLUTREN PROTEIN-A MICROSPHR 0.22 MG/ML 3 ML VIAL. IV ONE
--- NOTE | 2020-06-19 13:04 | CARD ---
MR#: [id number] Date of Study: 06/19/2020 Ordering Physician: WILLIAM ROSARIO, Referring Physician: WILLIAM ROSARIO, Tech: Amanda Pillai [facility] APPROVED REPORT EXAM: Two-dimensional and M-mode echocardiogram with Doppler and color Doppler. Other Information Quality : Technically Limited Technically limited study due to body habitus. INDICATION Aortic Valve Disease Echo Enhancing Agent Agent/Amount Used: Optison 2mL Surgery/Intervention Status/Post Aortic Valve Replacement: Bioprosthetic Type: Bovine 26 mm Date: 10/18/2019 2D DIMENSIONS RVDd2.5 (2.9-3.5cm)Left Atrium(2D)4.1 (1.6-4.0cm) IVSd0.9 (0.7-1.1cm)Aortic Root(2D)2.4 (2.0-3.7cm) LVDd4.6 (3.9-5.9cm)LVOT Diameter2.0 (1.8-2.4cm) PWd0.7 (0.7-1.1cm)LVDs3.9 (2.5-4.0cm) FS (%) 16.1 %SV33.7 ml LVEF(%)33.9 (>50%) Aortic Valve AoV Peak Jorge A.297.6cm/sAoV VTI65.9cm AO Peak GR.35.4mmHgLVOT Peak Jorge A.130.0cm/s AO Mean GR.18mmHgAVA (VMAX)1.35cm2 IGGY (VTI)1.60cm2 Mitral Valve MV E Jgyrfzeo253.7cm/sMV DECEL [id number] MV A Tszcnpga034.9cm/sE/A Ratio1.1 Tricuspid Valve TR P. Cevlwyrp800gn/sRAP KMEMEFLQ5jiFt TR Peak Gr.64zrOgFAYN22ouEg LEFT VENTRICLE The left ventricle is normal size. There is normal left ventricular wall thickness. The left ventricu lar systolic function is normal and the ejection fraction is within normal range. EF 50-55% Septal mo tion suggestive of prior CABG. Otherwise, grossly normal wall motion. Technically limited images. Tra nsmitral Doppler flow pattern is Grade I-abnormal relaxation pattern. RIGHT VENTRICLE The right ventricle is normal size. The right ventricular systolic function is normal. ATRIA The left atrium is mildly dilated. The right atrium size is normal. The interatrial septum is intact with no evidence for an atrial septal defect or patent foramen ovale as noted on 2-D or Doppler imagi ng. AORTIC VALVE Doppler and Color Flow revealed no significant aortic regurgitation. Calculated aortic valve area is 1.6 cm2 with maximum pressure gradient of 35 mmHg and mean pressure gradient of 18 mmHg. There is a B ovine 26 mm aortic valve prosthesis. Bioprosthesis leaflets are not well visualized. MITRAL VALVE The mitral valve is calcified but opens well. Mitral annular calcification is mild. There is no evide nce of mitral valve prolapse. There is no mitral valve stenosis. Doppler and Color-flow revealed trac e mitral regurgitation. TRICUSPID VALVE The tricuspid valve is normal in structure and function. Doppler and Color Flow revealed trace tricus pid regurgitation. The PA pressure was estimated at 28 mmHg. There is no tricuspid valve stenosis. PULMONIC VALVE The pulmonic valve is not well visualized. Doppler and Color Flow revealed no pulmonic valvular regur gitation. There is no pulmonic valvular stenosis. GREAT VESSELS The aortic root is normal in size. The ascending aorta is not well seen. The IVC was not visualized. PERICARDIAL EFFUSION There is no evidence of significant pericardial effusion. Critical Notification Critical Value: No <Conclusion> The left ventricular systolic function is normal and the ejection fraction is within normal range. EF 50-55% Septal motion suggestive of prior CABG. Otherwise, grossly normal wall motion. Technically limited im ages. There is a Bovine 26 mm aortic valve prosthesis. Bioprosthesis leaflets are not well visualized. Signed by : William Rosario, Electronically Approved : 06/19/2020 13:03:49
--- NOTE | 2020-06-20 08:35 | RAD ---
MR#: [id number] Date of Study: 06/19/2020 Ordering Physician: WILLIAM ROSARIO, Referring Physician: WILLIAM ROSARIO, Tech: APPROVED REPORT Patient Location: OUT-PATIENT Exam Type: Ankle to Brachial Index Indications Claudication: Pressures/Indices RightABI LeftABI Brachial 524pkCl8.29Brachial 881bjZf9.27 Ankle(PT) 158mmHgAnkle(PT) 155mmHg Ankle(DP) 166mmHgAnkle(DP) 163mmHg Findings Moderately elevated bilateral SIDNEY consistent with calcification of the lower extremity arterial vesse ls. Critical Notification Critical Value: No <Conclusion> 1. Elevated SIDNEY consistent with arterial calcification. Signed by : William Rosario, Electronically Approved : 06/20/2020 08:35:26
--- NOTE | 2020-06-20 08:37 | RAD ---
MR#: [id number] Date of Study: 06/19/2020 Ordering Physician: WILLIAM ROSARIO, Referring Physician: WILLIAM ROSARIO, Tech: APPROVED REPORT Patient Location : OUT-PATIENT Indications Lower Extremity Pain : Findings Grayscale lesions the bilateral saphenofemoral junctions are grossly unremarkable. The right great s aphenous vein measures 6 mm and does not show any evidence of reflux. The left great saphenous vein has been previously removed. The bilateral lesser saphenous veins did not reveal any evidence of reflux. Critical Notification Critical Value: No <Conclusion> 1. Negative for reflux in the right greater and bilateral lesser saphenous veins. Signed by : William Rosario, Electronically Approved : 06/20/2020 08:37:25
--- NOTE | 2020-06-20 08:39 | RAD ---
MR#: [id number] Date of Study: 06/19/2020 Ordering Physician: WILLIAM ROSARIO, Referring Physician: WILLIAM ROSARIO, Tech: APPROVED REPORT Patient Location: OUT-PATIENT Indications Claudication: VELOCITY AND DOPPLER WAVEFORM ANALYSIS RIGHT cm/secWaveformSeverity LEFT cm/secWaveform Severity dCFA 134.0BiphasicdCFA 128.0Triphasic Prof Fem Art. 66.0BiphasicProf Fem Art. 88.0Biphasic Fem Art Prox. 107.0BiphasicFem Art Prox. 79.0Biphasic Fem Art Mid. 112.0BiphasicFem Art Mid. 108.0Biphasic Fem Art Dist. 108.0BiphasicFem Art Dist. 69.0Biphasic Pop Art(Fossa) 91.0BiphasicPop Art(AK) 68.0Biphasic B2B SALES EXECUTIVE Prox. 100.0BiphasicPTA Prox. 99.0Biphasic B2B SALES EXECUTIVE Dist. 80.0MonophasicPTA Dist. 81.0Biphasic Per Art Dist.43.0BiphasicPer Art Dist.29.0Monophasic FÉLIX Prox. 53.0BiphasicATA Prox. 55.0Biphasic DPA 31MonophasicDPA 28Biphasic Findings Spectral waveforms and color Doppler of the bilateral lower extremity arterial vessels reveals mostly biphasic waveforms above the knee without any focal high-grade obstruction. Below the knee there ar e mostly biphasic and monophasic waveforms. Velocities are within normal limits. No high-grade foca l stenosis identified. Overall, grayscale edges demonstrate mild to moderate diffuse atherosclerosis . Critical Notification Critical Value: No <Conclusion> 1. No significant bilateral lower extremity arterial disease with three-vessel runoff. Signed by : William Rosario, Electronically Approved : 06/20/2020 08:39:15
== END ==
LOC: ECHO 10:09
PROVIDERS: ATTEND Internal Medicine Cardiovascular Disease
DX: I34.0 Nonrheumatic mitral (valve) insufficiency (principal); I73.9 Peripheral vascular disease, unspecified; M79.605 Pain in left leg; M79.604 Pain in right leg
CPT/HCPCS: 93922; 93925; 93970; C8929; Q9956